=== PATIENT | female | born 1935 | race Caucasian/White ===

== ENCOUNTER 2022-12-20 19:42 | Outpatient (CLI) | payer MEDICARE, OTHER | END 2022-12-20 19:43 | disposition critical access hospital (66) | LOC: EMS 19:42 | DX: T51.0X2A Toxic effect of ethanol, intentional self-harm, initial encounter (principal) | CPT/HCPCS: A0425; A0429 ==

== ENCOUNTER 2022-12-20 20:19 | Emergency (ER) | payer MEDICARE, OTHER ==
[2022-12-20 20:48] LABS: BASOPHILS % (AUTO) 0.7 %; EOSINOPHILS # (AUTO) 0.1 10^3/uL (0.0-0.7); EOSINOPHILS % (AUTO) 1.7 %; HCT - HEMATOCRIT 40.4 % (37.0-47.0); HGB - HEMOGLOBIN 13.9 g/dL (12.0-16.0); LYMPHOCYTES # (AUTO) 1.8 10^3/uL (1.5-3.5); LYMPHOCYTES % (AUTO) 30.9 %; MEAN CORPUSCULAR HEMOGLOBIN 31.9 pg (27.0-31.0); MEAN CORPUSCULAR HGB CONC 34.4 g/dL (32.0-36.0); MEAN CORPUSCULAR VOLUME 92.7 fL (81.0-99.0); MONOCYTES # (AUTO) 0.6 10^3/uL (0.0-1.0); MONOCYTES % (AUTO) 10.1 %; NEUTROPHILS # (AUTO) 3.3 10^3/uL (1.5-6.6); NEUTROPHILS % (AUTO) 56.4 %; PLT - PLATELET COUNT 237 10^3/uL (130-450); RED BLOOD COUNT 4.36 10^6/uL (4.20-5.40); RED CELL DISTRIBUTION WIDTH 12.6 % (12.0-15.0); WHITE BLOOD COUNT 5.9 x10^3/uL (4.8-10.8)
[2022-12-20 21:03] LABS: MUDS CUTOFF CONCENTRATIONS CUTOFF CONC BELOW:
[2022-12-20 21:04] LABS: ALBUMIN 4.2 g/dL (3.2-5.5); ALBUMIN/GLOBULIN RATIO 1.8 (1.0-2.2); ALKALINE PHOSPHATASE 109 IU/L (42-121); ALT ALANINE AMINOTRANSFERASE 18 IU/L (10-60); AST ASPARTATE AMINOTRANSFERASE 20 IU/L (10-42); BILIRUBIN,TOTAL 0.5 mg/dL (0.2-1.0); BUN - BLOOD UREA NITROGEN 15 mg/dL (6-20); CALCIUM 9.4 mg/dL (8.5-10.3); CARBON DIOXIDE - CO2 26 mmol/L (21-32); CHLORIDE 98 mmol/L (101-111); CREATININE 0.7 mg/dL (0.4-1.0); GFR - MDRD 80 (>89); GLUCOSE 206 mg/dL (70-100); LIPASE 32 U/L (22-51); POTASSIUM 3.8 mmol/L (3.5-5.0); SODIUM 134 mmol/L (135-145); TOTAL PROTEIN 6.6 g/dL (6.7-8.2)
[2022-12-20 21:07] LABS: BILIRUBIN,URINE NEGATIVE (NEGATIVE); GLUCOSE, URINE (UA) 250 mg/dL (NEGATIVE); KETONES,URINE (UA) NEGATIVE (NEGATIVE); LEUKOCYTE ESTERASE, URINE SMALL (NEGATIVE); NITRITE,URINE NEGATIVE (NEGATIVE); OCCULT BLOOD,URINE NEGATIVE (NEGATIVE); PROTEIN,URINE NEGATIVE (NEGATIVE); UROBILINOGEN,URINE 0.2 (NORMAL) E.U./dL (NORMAL)
[2022-12-20 21:12] LABS: CLARITY,URINE HAZY (CLEAR)
[2022-12-20 21:18] LABS: AMPHETAMINE SCREEN,URINE NEGATIVE (NEGATIVE); BARBITURATE SCREEN,UR NEGATIVE (NEGATIVE); BENZODIAZEPINES SCREEN, URINE NEGATIVE (NEGATIVE); COCAINE SCREEN URINE NEGATIVE (NEGATIVE); METHADONE SCREEN, URINE NEGATIVE (NEGATIVE); METHAMPHETAMINES SCREEN, URINE NEGATIVE (NEGATIVE); OPIATE SCREEN, URINE NEGATIVE (NEGATIVE); OXYCODONE SCREEN, URINE NEGATIVE (NEGATIVE); PROPOXYPHENE SCREEN, URINE NEGATIVE (NEGATIVE); THC CANNABINOID SCREEN, URINE NEGATIVE (NEGATIVE); TRICYCLIC ANTIDEPRESSANT,URINE NEGATIVE (NEGATIVE)
[2022-12-20 21:21] LABS: BACTERIA,URINE Few /HPF (None Seen); RBC,URINE 0-5 /HPF (0-5); SQUAMOUS EPITHELIAL CELL,UR FEW Squamous (<= Few)
[2022-12-20 21:45] LABS: THYROID STIMULATING HORMONE 1.93 uIU/mL (0.34-5.60)
[2022-12-20 22:51] LABS: ACETAMINOPHEN 2.2 ug/mL
[2022-12-20 23:27] LABS: SALICYLATE < 1.5 mg/dL
--- NOTE | 2022-12-20 23:54 | ED Physician Documentation ---
PD HPI MHE - Stated complaint Stated Complaint: MHE - Chief complaint Chief Complaint: MHE - History obtained from History obtained from: Patient, Family (daughter and son in law) - History of Present Illness Primary symptom: Suicidal ideation, Other (alcohol intoxication) - Additional information Additional information: 87-year-old woman with history of untreated depression presents with suicidal ideation and alcohol intoxication tonight. Patient states that she drink a third of a bottle of gin mean "to kill herself" because she had a really stressful day working on her washing machine for a few hours. Patient also states she has been depressed since her 2 years ago. Daughter Danielle Morales ([phone]) states the patient has had intermittent depression for years but is not willing to seek treatment and also not willing to see her primary care provider. Patient currently denying SI/HI/AVH, stating she wants to go home. PD PAST MEDICAL HISTORY - Past Medical History Past Medical History: No Other Past Medical History: Unable to report/obtain - Present Medications Home Medications: Ambulatory Orders Medication Instructions Recorded Confirmed Home Medications Unobtainable 12/20/22 12/20/22 [HOME MEDICATIONS UNOBTAINABLE] - Allergies Allergies/Adverse Reactions: Allergies Allergy/AdvReac Type Severity Reaction Status Date / Time No Known Drug Allergies Allergy Verified 12/20/22 20:31 - Social History Does the pt smoke?: No Smoking Status: Never smoker Does the pt drink ETOH?: Yes ETOH Use: Liquor Does the pt have substance abuse?: No - Immunizations Immunizations are current?: Yes - POLST Patient has POLST: No PD ED PE NORMAL - Vitals Vital signs reviewed: Yes - General General: Alert and oriented X 3, No acute distress, Well developed/nourished - HEENT HEENT: Atraumatic, PERRL, EOMI - Neck Neck: Supple, no meningeal sign - Cardiac Cardiac: RRR - Respiratory Respiratory: No respiratory distress, Clear bilaterally - Abdomen Abdomen: Non tender, Non distended - Derm Derm: Normal color, Warm and dry - Neuro Neuro: Alert and oriented X 3 - Psych Psych: Normal affect, Other (Depressed mood) Results - Vitals Vitals: Vital Signs - 24 hr 12/20/22 12/20/22 20:25 22:35 Temperature 36.3 C L 36.4 C L Heart Rate 77 84 Respiratory 16 18 Rate Blood Pressure 150/74 H 116/96 H O2 Saturation 98 97 Oxygen O2 Source Room air - Labs Labs: Laboratory Tests 12/20/22 12/20/22 12/20/22 20:44 20:44 20:45 WBC 5.9 RBC 4.36 Hgb 13.9 Hct 40.4 MCV 92.7 MCH 31.9 H MCHC 34.4 RDW 12.6 Plt Count 237 MPV 9.0 Neut # (Auto) 3.3 Lymph # (Auto) 1.8 [place] # (Auto) 0.6 Eos # (Auto) 0.1 Baso # (Auto) 0.0 Absolute Nucleated RBC 0.00 Nucleated RBC % 0.0 Sodium 134 L Potassium 3.8 Chloride 98 L Carbon Dioxide 26 Anion Gap 10.0 BUN 15 Creatinine 0.7 Estimated GFR (MDRD) 80 L Glucose 206 H Calcium 9.4 Total Bilirubin 0.5 AST 20 ALT 18 Alkaline Phosphatase 109 Total Protein 6.6 L Albumin 4.2 Globulin 2.4 Albumin/Globulin Ratio 1.8 Lipase 32 TSH 1.93 Urine Color YELLOW Urine Clarity HAZY Urine pH 6.0 Ur Specific Peyton <=1.005 Urine Protein NEGATIVE Urine Glucose (UA) 250 H Urine Ketones NEGATIVE Urine Occult Blood NEGATIVE Urine Nitrite NEGATIVE Urine Bilirubin NEGATIVE Urine Urobilinogen 0.2 (NORMAL) Ur Leukocyte Esterase SMALL H Urine RBC 0-5 Urine WBC 4-5 Ur Squamous Epith Cells FEW Squamous Urine Bacteria Few Ur Microscopic Review INDICATED Urine Culture Comments INDICATED Salicylates < 1.5 Urine Opiates Screen NEGATIVE Ur Oxycodone Screen NEGATIVE Urine Methadone Screen NEGATIVE Ur Propoxyphene Screen NEGATIVE Acetaminophen 2.2 Ur Barbiturates Screen NEGATIVE Ur Tricyclics Screen NEGATIVE Ur Phencyclidine Scrn NEGATIVE Ur Amphetamine Screen NEGATIVE U Methamphetamines Scrn NEGATIVE U Benzodiazepines Scrn NEGATIVE Urine Cocaine Screen NEGATIVE U Cannabinoids Screen NEGATIVE Ethyl Alcohol 131.0 SARS-CoV-2 (PCR) 12/20/22 20:56 WBC RBC Hgb Hct MCV MCH MCHC RDW Plt Count MPV Neut # (Auto) Lymph # (Auto) [place] # (Auto) Eos # (Auto) Baso # (Auto) Absolute Nucleated RBC Nucleated RBC % Sodium Potassium Chloride Carbon Dioxide Anion Gap BUN Creatinine Estimated GFR (MDRD) Glucose Calcium Total Bilirubin AST ALT Alkaline Phosphatase Total Protein Albumin Globulin Albumin/Globulin Ratio Lipase TSH Urine Color Urine Clarity Urine pH Ur Specific [place]ey[place] Urine Protein Urine Glucose (UA) Urine Ketones Urine Occult Blood Urine Nitrite Urine Bilirubin Urine Urobilinogen Ur Leukocyte Esterase Urine RBC Urine WBC Ur Squamous Epith Cells Urine Bacteria Ur Microscopic Review Urine Culture Comments Salicylates Urine Opiates Screen Ur Oxycodone Screen Urine Methadone Screen Ur Propoxyphene Screen Acetaminophen Ur Barbiturates Screen Ur Tricyclics Screen Ur Phencyclidine Scrn Ur Amphetamine Screen U Methamphetamines Scrn U Benzodiazepines Scrn Urine Cocaine Screen U Cannabinoids Screen Ethyl Alcohol SARS-CoV-2 (PCR) NOT DETECTED PD Medical Decision Making - ED course ED course: 87-year-old woman presents to the emergency department with suicidal ideation and alcohol intoxication tonight. Patient called her daughter and said she wanted to kill herself so her daughter called 911 and sent her to the emergency room. Patient herself now denying SI here in the ED and is ambulatory to the bathroom without difficulty. Clinically stable at this time. She is requesting to go home and the daughter states that she can bring her home and watch her overnight. Return precautions given. Provided referral to mental health counseling and recommendation to start SSRI as coordinated by primary care provider. Departure - Departure Disposition: 01 Home, Self Care Clinical Impression: Alcohol intoxication, Depression Condition: Stable Instructions: ED Depression, ED Alcohol Abuse Comments: You are seen in the emergency department for mental health evaluation after drinking alcohol. Please follow-up with your primary care provider and a mental health counselor. You will benefit from starting an SSRI such as Prozac or Lexapro. He also would benefit from mental health counseling. Please see referral below. Yasmin Bautista [facility] email: [email or web address] website: [email or web address] years experience clinical psychotherapist in [place]. Return to the emergency department if you have new or worsening symptoms or other concerns. Forms: PCP List
[2022-12-21 00:06] VITALS: BP 118/68; O2SAT 100
== END 2022-12-21 | disposition home or self-care (01) ==
LOC: ED 20:19
DX: F10.129 Alcohol abuse with intoxication, unspecified (principal); Y90.6 Blood alcohol level of 120-199 mg/100 ml; Z20.822 Contact with and (suspected) exposure to COVID-19
CPT/HCPCS: 36415; 80053; 80306; 80307; 81001; 83690; 84443; 85025; 87086; 87635; 99283; G0480; 80320; 80329; 81003

== ENCOUNTER 2023-04-05 11:46 | Outpatient (CLI) | payer MEDICARE, OTHER | END 2023-04-05 11:47 | disposition critical access hospital (66) | LOC: EMS 11:46 | DX: S00.83XA Contusion of other part of head, initial encounter (principal); S50.01XA Contusion of right elbow, initial encounter; W01.0XXA Fall on same level from slipping, tripping and stumbling without subsequent striking against object, initial encounter; Y92.009 Unspecified place in unspecified non-institutional (private) residence as the place of occurrence of the external cause; R45.851 Suicidal ideations; R29.6 Repeated falls | CPT/HCPCS: A0425; A0429 ==

== ENCOUNTER 2023-04-05 12:22 | Emergency (ER) | payer MEDICARE, OTHER ==
--- NOTE | 2023-04-05 12:36 | ED Physician Documentation ---
History of Present Illness - Stated complaint Stated Complaint: FALL/HEAD INJ - History obtained from History obtained from: Patient, EMS - Additonal information Additional information: 88-year-old woman with frequent falls, lives alone, but family is very involved. She has frequent falls and fell yesterday evening around 5:30 PM. She is not sure why she fell but denies loss of consciousness. She was unable to get off the floor all night and did lay on the floor until family found her this morning. She really has no complaints but paramedics tell me that she stopped taking her blood pressure medication several months ago and the patient admits that this is "because I want to ." She is not actively suicidal and declines to talk to the adoption social worker for this. Per EMS the family is arranging for her to go to assisted living between the falls and the depression. PD PAST MEDICAL HISTORY - Present Medications Home Medications: Ambulatory Orders Medication Instructions Recorded Confirmed Nitrofurantoin [Macrobid] 100 mg PO BID #10 tab 12/21/22 - Allergies Allergies/Adverse Reactions: Allergies Allergy/AdvReac Type Severity Reaction Status Date / Time No Known Drug Allergies Allergy Verified 12/20/22 20:31 - Social History Does the pt smoke?: No Smoking Status: Never smoker Does the pt drink ETOH?: Yes Does the pt have substance abuse?: No - Immunizations Immunizations are current?: Yes - POLST Patient has POLST: No PD ED PE NORMAL - Vitals Vital signs reviewed: Yes - General General: Alert and oriented X 3, No acute distress - HEENT HEENT: Other (Scrapes over the right forehead and evidence of dried epistaxis. 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 Eye Opening: Spontaneous Motor: Obeys Commands Verbal: Oriented GCS Score: 15 Results - Vitals Vitals: Vital Signs - 24 hr 04/05/23 04/05/23 12:37 17:23 Temperature 36.5 C Heart Rate 89 91 Respiratory 18 18 Rate Blood Pressure 207/96 H 186/94 H O2 Saturation 99 97 Oxygen O2 Source Room air - Labs Labs: Laboratory Tests 04/05/23 04/05/23 12:46 12:46 WBC 12.2 H RBC 4.73 Hgb 14.9 Hct 42.8 MCV 90.5 MCH 31.5 H MCHC 34.8 RDW 12.3 Plt Count 276 MPV 9.5 Neut # (Auto) 10.7 H Lymph # (Auto) 0.8 L [place] # (Auto) 0.6 Eos # (Auto) 0.0 Baso # (Auto) 0.0 Absolute Nucleated RBC 0.00 Nucleated RBC % 0.0 Sodium 133 L Potassium 3.2 L Chloride 98 L Carbon Dioxide 24 Anion Gap 11.0 BUN 20 Creatinine 0.6 Estimated GFR (MDRD) 95 Glucose 198 H Calcium 9.2 Magnesium 1.6 L Total Bilirubin 1.0 AST 32 ALT 23 Alkaline Phosphatase 76 Total Creatine Kinase 466 H Total Protein 6.5 Albumin 4.3 Globulin 2.2 Albumin/Globulin Ratio 2.0 Vitamin B12 276 Folate 7.9 TSH 0.68 - Rads (name of study) CT of the head and cervical spine are negative except for chronic microvascular changes. Relevant Findings:: Final report received, EMP independent interpretation of test PD Medical Decision Making - ED course Complexity details: reviewed results (CBC showing mild nonspecific leukocytosis otherwise negative. CMP notable for mild hyponatremia, similar to prior value, mild hypokalemia and hypomagnesemia repleted orally. Mild to moderate hyperglycemia. CK modestly elevated but not alarmingly at 466.) ED course: 88-year-old woman had a fall last night with a head injury with negative cranial imaging. Has very mild elevation of CK. Ambulatory here without further complaints and really did not want to be here. She has hopelessness and depression but is not actively suicidal. Family supportive and at bedside and working on placement which is appropriate. Departure - Departure Disposition: 01 Home, Self Care Clinical Impression: Head injury Qualifiers: Encounter type: initial encounter Qualified Code(s): S09.90XA - Unspecified injury of head, initial encounter Condition: Good Record reviewed to determine appropriate education?: Yes Instructions: ED Head Injury Closed Comments: I agree with your family's plans to seek placement at [facility] or similar facility. No evidence of severe head injury. Potassium and magnesium were slightly low and you did receive supplementation here. Call your doctor to arrange a follow-up appointment, make the next available appointment. In the interim, return anytime if worse or if new symptoms develop. Forms: PCP List Discharge Date/Time: 04/05/23 17:23
[2023-04-05 12:53] LABS: BASOPHILS % (AUTO) 0.2 %; EOSINOPHILS % (AUTO) 0.1 %; HCT - HEMATOCRIT 42.8 % (37.0-47.0); HGB - HEMOGLOBIN 14.9 g/dL (12.0-16.0); LYMPHOCYTES # (AUTO) 0.8 10^3/uL (1.5-3.5); LYMPHOCYTES % (AUTO) 6.3 %; MEAN CORPUSCULAR HEMOGLOBIN 31.5 pg (27.0-31.0); MEAN CORPUSCULAR HGB CONC 34.8 g/dL (32.0-36.0); MEAN CORPUSCULAR VOLUME 90.5 fL (81.0-99.0); MEAN PLATELET VOLUME 9.5 fL (7.9-10.8); MONOCYTES # (AUTO) 0.6 10^3/uL (0.0-1.0); MONOCYTES % (AUTO) 4.8 %; NEUTROPHILS # (AUTO) 10.7 10^3/uL (1.5-6.6); NEUTROPHILS % (AUTO) 88.1 %; PLT - PLATELET COUNT 276 10^3/uL (130-450); RED BLOOD COUNT 4.73 10^6/uL (4.20-5.40); RED CELL DISTRIBUTION WIDTH 12.3 % (12.0-15.0); WHITE BLOOD COUNT 12.2 x10^3/uL (4.8-10.8)
[2023-04-05 13:07] LABS: ALBUMIN 4.3 g/dL (3.2-5.5); CALCIUM 9.2 mg/dL (8.5-10.3); CREATININE 0.6 mg/dL (0.6-1.3); MAGNESIUM 1.6 mg/dL (1.7-2.3); POTASSIUM 3.2 mmol/L (3.5-4.5); TOTAL PROTEIN 6.5 g/dL (6.4-8.9)
[2023-04-05] MEDS ORDERED: POTASSIUM BICARB 25 MEQ TABLET PO STA (13:25)
[2023-04-05] MEDS ORDERED: MAGNESIUM OXIDE 400 MG TABLET PO STA (13:25)
[2023-04-05 13:49] LABS: THYROID STIMULATING HORMONE 0.68 uIU/mL (0.34-5.60)
--- NOTE | 2023-04-05 16:52 | CT Report ---
PROCEDURE: HEAD WO INDICATIONS: head inj TECHNIQUE: Noncontrast 4.5 mm thick angled axial sections acquired from the foramen magnum to the vertex. For r adiation dose reduction, the following was used: automated exposure control, adjustment of mA and/or kV according to patient size. COMPARISON: None. FINDINGS: Image quality: Excellent. CSF spaces: Basal cisterns are patent. No extra-axial fluid collections. Ventricles are normal in size and shape. Brain: No midline shift. No intracranial masses or hemorrhage. Resendiz-white matter interface is norm al. Mild parenchymal volume loss with expansion of the CSF containing spaces with periventricular hy podensities consistent with chronic microvascular ischemic disease. Skull and face: Calvarium and visualized facial bones are intact, without suspicious lesions. Sinuses: Visualized sinuses and mastoids are clear. IMPRESSION: No acute intracranial pathology. Sequela of chronic microvascular disease. Reviewed by: Rey Sena MD on 04/05/2023 3:50 PM [place] Approved by: Rey Sena MD on 04/05/2023 3:50 PM [facility] Station ID: [id number]
--- NOTE | 2023-04-05 16:54 | CT Report ---
PROCEDURE: CERVICAL SPINE WO INDICATIONS: head inj TECHNIQUE: Noncontrast 3 mm thick sections acquired from the skull base to the T4 level. Sagittal and coronal r eformats were then constructed. For radiation dose reduction, the following was used: automated exp osure control, adjustment of mA and/or kV according to patient size. COMPARISON: None. FINDINGS: Image quality: Excellent. Bones: No fractures or dislocations. Visualized superior ribs are intact. Soft tissues: Prevertebral soft tissues are normal in thickness. No paravertebral hematomas. No ap ical pneumothoraces. Spondylitic changes throughout the cervical spine consistent with patient age. IMPRESSION: No acute osseous finding. Reviewed by: Rey Sena MD on 04/05/2023 3:53 PM [place] Approved by: Rey Sena MD on 04/05/2023 3:53 PM [place] Station ID: [id number]
[2023-04-05 17:26] VITALS: BP 186/94; O2SAT 97
== END 2023-04-05 17:23 | disposition home or self-care (01) ==
LOC: EDUNIT# → ED 12:22
DX: S09.90XA Unspecified injury of head, initial encounter (principal); S00.81XA Abrasion of other part of head, initial encounter; W19.XXXA Unspecified fall, initial encounter; E87.1 Hypo-osmolality and hyponatremia; E87.6 Hypokalemia; E83.42 Hypomagnesemia; R73.9 Hyperglycemia, unspecified; R94.4 Abnormal results of kidney function studies; Z91.81 History of falling; Z91.148 Patient's other noncompliance with medication regimen for other reason
CPT/HCPCS: 36415; 80053; 82550; 82607; 82746; 83735; 84443; 85025; 99284

== ENCOUNTER 2023-08-04 16:57 | Outpatient (CLI) | payer MEDICARE, OTHER | END 2023-08-04 23:59 | disposition critical access hospital (66) | LOC: EMS 16:57 | DX: R53.83 Other fatigue (principal); R41.82 Altered mental status, unspecified; R03.1 Nonspecific low blood-pressure reading; R11.2 Nausea with vomiting, unspecified; Z91.81 History of falling | CPT/HCPCS: A0425; A0427 ==

== ENCOUNTER 2023-08-04 17:23 | Inpatient (IN) | payer MEDICARE, OTHER ==
--- NOTE | 2023-08-04 17:34 | ED Physician Documentation ---
PD HPI ALTERED MENTAL STATUS - Stated complaint Stated Complaint: FALL/ALOC - History obtained from History obtained from: EMS - Additional information Additional information: 88-year-old woman with history of "cognitive decline" and hypertension presents from [facility]. Sounds like usually she is at least her alert and oriented and today has been altered and potentially had a fall. It is unclear if she hit her head. Patient is a poor historian and only alert and oriented x 1 on evaluation here. She did vomit prior to arrival. No report of blood in the vomit. All of the history is from EMS due to her altered mental status. She was hypotensive prior to arrival with a systolic of 80s and the petroleum products sales representative does not remember her diastolics. PD PAST MEDICAL HISTORY - Past Medical History Cardiovascular: Hypertension - Present Medications Home Medications: Ambulatory Orders Medication Instructions Recorded Confirmed Lisinopril [Zestril] 40 mg PO DAILY 08/04/23 08/04/23 amLODIPine [Norvasc] 5 mg PO DAILY 08/04/23 08/04/23 - Allergies Allergies/Adverse Reactions: Allergies Allergy/AdvReac Type Severity Reaction Status Date / Time adhesive tape Allergy Unknown Verified 08/04/23 17:45 aspirin Allergy Unknown Verified 08/04/23 17:45 codeine Allergy Unknown Verified 08/04/23 17:45 flurandrenolide Allergy Unknown Verified 08/04/23 17:45 Penicillins Allergy Unknown Verified 08/04/23 17:45 - Social History Does the pt smoke?: No Smoking Status: Never smoker Does the pt drink ETOH?: Yes Does the pt have substance abuse?: No - Immunizations Immunizations are current?: Yes - POLST Patient has POLST: No PD ED PE NORMAL - Vitals Vital signs reviewed: Yes (Alert and oriented x 1) - General General: Other (Alert and oriented x 1) - HEENT HEENT: PERRL, EOMI - Neck Neck: Supple, no meningeal sign, No bony TTP - Cardiac Cardiac: RRR, No murmur - Respiratory Respiratory: No respiratory distress, Clear bilaterally - Abdomen Abdomen: Non tender - Neuro Neuro: No motor deficit, No sensory deficit Eye Opening: Spontaneous Motor: Obeys Commands Verbal: Confused GCS Score: 14 Results - Vitals Vitals: Vital Signs - 24 hr 04/08/24 04/08/24 04/08/24 17:38 17:44 19:10 Temperature 36.1 C L 36.5 C Heart Rate 88 88 100 Heart Rate [ Monitoring electrodes] Respiratory 22 16 24 Rate Blood Pressure 100/54 L 100/54 L 153/62 H Blood Pressure [Left Brachial artery] O2 Saturation 95 95 35 L If not protocol : Oxygen Flow, liters/minute 08/04/23 08/04/23 08/04/23 19:19 19:30 20:00 Temperature Heart Rate 100 104 H Heart Rate [ Monitoring electrodes] Respiratory 22 20 Rate Blood Pressure 112/55 L 103/33 L Blood Pressure [Left Brachial artery] O2 Saturation 86 L 96 95 If not protocol 15 15 : Oxygen Flow, liters/minute 08/04/23 08/04/23 08/04/23 20:25 20:30 20:48 Temperature 36.0 C L 36.1 C L Heart Rate 104 H Heart Rate [ 99 100 Monitoring electrodes] Respiratory 22 20 22 Rate Blood Pressure 114/53 L Blood Pressure 100/61 114/53 L [Left Brachial artery] O2 Saturation 95 92 96 If not protocol 15 6 : Oxygen Flow, liters/minute Oxygen O2 Source Nasal cannula Oxygen Flow Rate 15 - EKG (time done) 1743 EKG releavant findings:: EKG personally interpreted by author of this note. Relevant findings are: Rate: Rate (enter#) (92) Rhythm: NSR Intervals: Prolonged MI Ischemia: Non specific changes. No: ST elevation c/w ischemia - Labs Labs: Microbiology 08/04/23 18:10 Occult Blood - Final Stool Laboratory Tests 08/04/23 08/04/23 08/04/23 17:40 17:45 17:45 WBC 11.4 H RBC 2.15 L Hgb 6.9 L* Hct 20.5 L MCV 95.3 MCH 32.1 H MCHC 33.7 RDW 14.1 Plt Count 324 MPV 8.9 Neut # (Auto) 9.4 H Lymph # (Auto) 1.3 L [place] # (Auto) 0.5 Eos # (Auto) 0.0 Baso # (Auto) 0.0 Absolute Nucleated RBC 0.02 Nucleated RBC % 0.2 PT 13.2 H INR 1.2 Sodium 127 L Potassium 3.6 Chloride 93 L Carbon Dioxide 25 Anion Gap 9.0 BUN 34 H Creatinine 0.9 Estimated GFR (MDRD) 59 L Glucose 240 H Lactic Acid Calcium 8.4 L Total Bilirubin 0.4 AST 9 L ALT 10 Alkaline Phosphatase 55 Total Protein 4.7 L Albumin 3.3 Globulin 1.4 L Albumin/Globulin Ratio 2.4 H Nasal Adenovirus (PCR) Nasal B. parapertussis DNA (PCR) Nasal Coronavir 229E PCR Nasal Coronavir HKU1 PCR Nasal Coronavir NL63 PCR Nasal Coronavir OC43 PCR Nasal Enterovir/Rhinovir PCR Nasal Influenza B PCR Nasal Influenza A PCR Nasal Parainfluen 1 PCR Nasal Parainfluen 2 PCR Nasal Parainfluen 3 PCR Nasal Parainfluen 4 PCR Nasal RSV (PCR) Nasal B.pertussis DNA PCR Nasal C.pneumoniae (PCR) Mitch Human Metapneumo PCR Nasal M.pneumoniae (PCR) Nasal SARS-CoV-2 (PCR) Ethyl Alcohol < 10.0 Blood Type Blood Type Recheck Antibody Screen Crossmatch IS Only 08/04/23 08/04/23 08/04/23 17:45 18:23 18:23 WBC RBC Hgb Hct MCV MCH MCHC RDW Plt Count MPV Neut # (Auto) Lymph # (Auto) [place] # (Auto) Eos # (Auto) Baso # (Auto) Absolute Nucleated RBC Nucleated RBC % PT INR Sodium Potassium Chloride Carbon Dioxide Anion Gap BUN Creatinine Estimated GFR (MDRD) Glucose Lactic Acid 2.6 H Calcium Total Bilirubin AST ALT Alkaline Phosphatase Total Protein Albumin Globulin Albumin/Globulin Ratio Nasal Adenovirus (PCR) Nasal B. parapertussis DNA (PCR) Nasal Coronavir 229E PCR Nasal Coronavir HKU1 PCR Nasal Coronavir NL63 PCR Nasal Coronavir OC43 PCR Nasal Enterovir/Rhinovir PCR Nasal Influenza B PCR Nasal Influenza A PCR Nasal Parainfluen 1 PCR Nasal Parainfluen 2 PCR Nasal Parainfluen 3 PCR Nasal Parainfluen 4 PCR Nasal RSV (PCR) Nasal B.pertussis DNA PCR Nasal C.pneumoniae (PCR) Mitch Human Metapneumo PCR Nasal M.pneumoniae (PCR) Nasal SARS-CoV-2 (PCR) Ethyl Alcohol Blood Type O NEGATIVE Blood Type Recheck O NEGATIVE Antibody Screen NEGATIVE Crossmatch IS Only See Detail 08/04/23 20:04 WBC RBC Hgb Hct MCV MCH MCHC RDW Plt Count MPV Neut # (Auto) Lymph # (Auto) [place] # (Auto) Eos # (Auto) Baso # (Auto) Absolute Nucleated RBC Nucleated RBC % PT INR Sodium Potassium Chloride Carbon Dioxide Anion Gap BUN Creatinine Estimated GFR (MDRD) Glucose Lactic Acid Calcium Total Bilirubin AST ALT Alkaline Phosphatase Total Protein Albumin Globulin Albumin/Globulin Ratio Nasal Adenovirus (PCR) NOT DETECTED Nasal B. parapertussis DNA (PCR) NOT DETECTED Nasal Coronavir 229E PCR NOT DETECTED Nasal Coronavir HKU1 PCR NOT DETECTED Nasal Coronavir NL63 PCR NOT DETECTED Nasal Coronavir OC43 PCR NOT DETECTED Nasal Enterovir/Rhinovir PCR NOT DETECTED Nasal Influenza B PCR NOT DETECTED Nasal Influenza A PCR NOT DETECTED Nasal Parainfluen 1 PCR NOT DETECTED Nasal Parainfluen 2 PCR NOT DETECTED Nasal Parainfluen 3 PCR NOT DETECTED Nasal Parainfluen 4 PCR NOT DETECTED Nasal RSV (PCR) NOT DETECTED Nasal B.pertussis DNA PCR NOT DETECTED Nasal C.pneumoniae (PCR) NOT DETECTED Mitch Human Metapneumo PCR NOT DETECTED Nasal M.pneumoniae (PCR) NOT DETECTED Nasal SARS-CoV-2 (PCR) NOT DETECTED Ethyl Alcohol Blood Type Blood Type Recheck Antibody Screen Crossmatch IS Only - Rads (name of study) Single view chest x-ray showing mild left basilar atelectasis versus infiltrate Relevant Findings:: Final report received, EMP independent interpretation of test CT of the head and cervical spine showing heavy vascular calcification, no trauma, severe degenerative changes in the spine. Relevant Findings:: Final report received, EMP independent interpretation of test aNGIO abD-Probable peptic ulcer disease with potential adjacent fluid and edema, tight celiac artery, diverticulosis Relevant Findings:: Final report received, EMP independent interpretation of test PD Medical Decision Making - ED course ED course: This is an 88-year-old woman with "cognitive decline" who presents by ambulance appearing very ill and encephalopathic. She may have hit her head today and she was hypotensive prior to arrival with vomitus. The vomit looks quite dark, but the paramedics tell me she was eating chocolate just prior to arrival. She was guaiac negative from from below but I am still worried about a GI bleed given her hemoglobin of 6.9. Previous hemoglobins had been normal. Workup in the emergency department otherwise showed mild leukocytosis on CBC, normal INR, CMP notable for a sodium of 127, she has been hyponatremic in the past but not to this level, she has some prerenal azotemia with mild lactic acidosis. She went over for CTs of the head, neck, and angio abdomen given the potential for GI bleed. Unfortunately she did have some contrast exaggerated extravasation at that time but another line was placed. It was reported to me that she vomited again and CT and return back from CT she is even more encephalopathic and now profoundly hypoxemic down into the 30s. She was placed on supplemental oxygen and came up to about 80%. I called the daughter by phone at [phone] and discussed current situation and goals of care. She is adamant that the patient does not want intubation or resuscitation but would be okay with conservative medical care such as oxygen, fluids, and antibiotics if the need were to arise. Daughter arrived and was at the bedside and we spoke at 8:30 PM. We discussed the findings on the abdominal angio with potential PUD which could cause an upper GI bleed. She looks fairly constipated below on that study so that may explain why she is guaiac negative now if she just has not had time for the blood to transverse through the colon. Daughter okay with EGD if needed and case discussed by phone with Dr. Louise, her surgeon at 8:38 PM who will follow in consult. At this point she is probably a little too sick to do urgent EGD, patient still requiring nonrebreather but looking better than she did earlier and her sats are now near 100%. Telehealth consultation placed for admission at 8:44 PM. Given the finding of left basilar atelectasis, leukocytosis, and respiratory failure I did put her on Rocephin and Zithromax for presumed CAP. Discussed case by phone with Dr. Arteaga for admission at 9 PM. - Critical Care Time(min): 40 Time Includes: Direct patient care, Review records, Reassess patient, Document care, Coordinate care, Medical consult, Family consult for [facility] Data interpretation: Labs, Pulse ox Procedures included in critical care time: Peripheral IV Procedures excluded from critical care time: EKG Departure - Departure Disposition: 66 [facility] DC/Xfer Clinical Impression: Acute anemia, Pneumonia GI bleed Qualifiers: GI bleed type/associated pathology: unspecified gastrointestinal hemorrhage type Qualified Code(s): K92.2 - Gastrointestinal hemorrhage, unspecified Respiratory failure Qualifiers: Chronicity: acute Respiratory failure complication: hypoxia Qualified Code(s): J96.01 - Acute respiratory failure with hypoxia
[2023-08-04 17:50] LABS: BASOPHILS % (AUTO) 0.4 %; EOSINOPHILS % (AUTO) 0.4 %; HCT - HEMATOCRIT 20.5 % (37.0-47.0); LYMPHOCYTES # (AUTO) 1.3 10^3/uL (1.5-3.5); LYMPHOCYTES % (AUTO) 11.2 %; MEAN CORPUSCULAR HEMOGLOBIN 32.1 pg (27.0-31.0); MEAN CORPUSCULAR HGB CONC 33.7 g/dL (32.0-36.0); MEAN CORPUSCULAR VOLUME 95.3 fL (81.0-99.0); MEAN PLATELET VOLUME 8.9 fL (7.9-10.8); MONOCYTES # (AUTO) 0.5 10^3/uL (0.0-1.0); MONOCYTES % (AUTO) 4.6 %; NEUTROPHILS # (AUTO) 9.4 10^3/uL (1.5-6.6); NEUTROPHILS % (AUTO) 82.4 %; NRBC ABSOLUTE COUNT (AUTO) 0.02 x10^3/uL; NUCLEATED RED BLOOD CELLS AUTO 0.2 /100WBC; PLT - PLATELET COUNT 324 10^3/uL (130-450); RED BLOOD COUNT 2.15 10^6/uL (4.20-5.40); RED CELL DISTRIBUTION WIDTH 14.1 % (12.0-15.0); WHITE BLOOD COUNT 11.4 x10^3/uL (4.8-10.8)
[2023-08-04 18:03] LABS: HGB - HEMOGLOBIN 6.9 g/dL (12.0-16.0)
[2023-08-04 18:05] LABS: INR 1.2 (0.8-1.2); PT - PROTHROMBIN TIME 13.2 secs (9.9-12.6)
[2023-08-04 18:10] LABS: ALBUMIN 3.3 g/dL (3.2-5.5); ALBUMIN/GLOBULIN RATIO 2.4 (1.0-2.2); ALKALINE PHOSPHATASE 55 IU/L (42-121); ALT ALANINE AMINOTRANSFERASE 10 IU/L (10-60); AST ASPARTATE AMINOTRANSFERASE 9 IU/L (10-42); BILIRUBIN,TOTAL 0.4 mg/dL (0.2-1.0); BUN - BLOOD UREA NITROGEN 34 mg/dL (6-20); CALCIUM 8.4 mg/dL (8.5-10.3); CARBON DIOXIDE - CO2 25 mmol/L (21-32); CHLORIDE 93 mmol/L (101-111); CREATININE 0.9 mg/dL (0.6-1.3); ETOH - ETHANOL < 10.0 mg/dL; GFR - MDRD 59 (>89); GLUCOSE 240 mg/dL (74-104); POTASSIUM 3.6 mmol/L (3.5-4.5); SODIUM 127 mmol/L (135-145); TOTAL PROTEIN 4.7 g/dL (6.4-8.9)
[2023-08-04] MEDS: PANTOPRAZOLE 40 MG VIAL IVP STA (18:20)
[2023-08-04] MEDS ORDERED: iohexoL-300 100 ML VIAL ONE ×2 (18:23→18:47)
--- NOTE | 2023-08-04 18:43 | XRAY Report ---
PROCEDURE: Chest 1V INDICATIONS: ams TECHNIQUE: One view of the chest was acquired. COMPARISON: None FINDINGS: Surgical changes and devices: None. Lungs and pleura: Mild left basilar atelectasis and or infiltrate Mediastinum: Mediastinal contours appear normal. Heart size is normal. Bones and chest wall: No suspicious bony lesions. Overlying soft tissues appear unremarkable. IMPRESSION: Mild left basilar atelectasis and/or infiltrate Reviewed by: Santos Vinson MD on 08/04/2023 5:42 PM AKDT Approved by: Santos Vinson MD on 08/04/2023 5:42 PM AKDT Station ID: [id number]
--- NOTE | 2023-08-04 19:26 | CT Report ---
PROCEDURE: Head WO INDICATIONS: ams head inj TECHNIQUE: Noncontrast 4.5 mm thick angled axial sections acquired from the foramen magnum to the vertex. For r adiation dose reduction, the following was used: automated exposure control, adjustment of mA and/or kV according to patient size. COMPARISON: 04/05/2023 FINDINGS: Image quality: Excellent. CSF spaces: Basal cisterns are patent. No extra-axial fluid collections. Ventricles are normal in size and shape. Brain: No midline shift. No intracranial masses or hemorrhage. Resendiz-white matter interface is norm al. Patchy subcortical hypodensity in the left posterior parietal region, similar compared to prior exam. Minimal periventricular white matter hypodensity. Heavy vascular calcification. Skull and face: Calvarium and visualized facial bones are intact, without suspicious lesions. Sinuses: Visualized sinuses and mastoids are clear. IMPRESSION: No CT evidence of acute intracranial trauma. No significant soft tissue injury seen or underlying skull fracture. Heavy vascular calcification. Reviewed by: Kristi Patel MD on 08/04/2023 7:24 PM PDT Approved by: Kristi Patel MD on 08/04/2023 7:24 PM PDT Station ID: [id number]
[2023-08-04] MEDS: iohexoL-300 100 ML VIAL IVP ONE (19:33)
--- NOTE | 2023-08-04 19:38 | CT Report ---
PROCEDURE: Cervical Spine WO INDICATIONS: head inj TECHNIQUE: Noncontrast 3 mm thick sections acquired from the skull base to the T4 level. Sagittal and coronal r eformats were then constructed. For radiation dose reduction, the following was used: automated exp osure control, adjustment of mA and/or kV according to patient size. COMPARISON: 04/05/2023 FINDINGS: Image quality: Excellent. Bones: No fractures or dislocations. There are severe degenerative changes at the atlantodental inte rval and craniocervical junction anteriorly. Severe disc height loss from C3 through C7 and moderate endplate spurring. Trace retrolisthesis C4-5 and trace anterolisthesis C3-4 and C6-7. Visualized supe rior ribs are intact. Soft tissues: Prevertebral soft tissues are normal in thickness. No paravertebral hematomas. No ap ical pneumothoraces. IMPRESSION: No acute fracture or traumatic subluxation. Stable and moderate to severe degenerative changes throughout the spine, most extensive at the cranio cervical junction and C1 to interval anteriorly. Reviewed by: Kristi Patel MD on 08/04/2023 7:36 PM PDT Approved by: Kristi Patel MD on 08/04/2023 7:36 PM PDT Station ID: [id number]
[2023-08-04] MEDS: SODIUM CHLORIDE 0.9% 1,000 ML IV STA ×2 (19:48→21:40)
--- NOTE | 2023-08-04 20:00 | CT Report ---
PROCEDURE: Angio Abdomen/Pelvis INDICATIONS: gi bleed CONTRAST: Omnipaque 300 100ml TECHNIQUE: After the administration of intravenous contrast, 2.5 mm thick sections acquired from the diaphragm t o the symphysis. 10 mm maximum-intensity projection (MIP) reformats were then acquired. For radiati on dose reduction, the following was used: automated exposure control, adjustment of mA and/or kV ac cording to patient size. COMPARISON: None FINDINGS: Image quality: Decreased due to patient's arm position.. Aorta: Normal caliber aorta with mild to moderate calcific plaque. Tortuous course. No dissection. 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 Celiac branches are patent. Superior mesenteric artery origin is patent with mild atherosclerotic shavonne cification. The inferior mesenteric artery is extremely diminutive but patent. Right pelvic arteries: Patent. Left pelvic arteries: Patent. Extravascular soft tissues: There is mixed interstitial and alveolar opacity in the left lower lung. Bronchial wall thickening in the lower lobes bilaterally and diffuse mild interstitial thickening in the right lower lobe. No pleural effusion. Moderate cardiomegaly. Pulmonary artery enlargement. Norm al aortic contour. Tiny hiatal hernia. The stomach is filled with fluid. There may be inflammation in the right upper quadrant gallbladder f brad involving the distal antrum and proximal duodenum. This area is obscured by beam hardening artif act from cholecystectomy clips. There is no adjacent extraluminal gas although adjacent free fluid ca nnot be excluded. Small bowel loops are decompressed. There are several moderate sized diverticula sc attered throughout colon. The colon demonstrates moderately increased quantity of solid stool diffuse ly. No focal wall thickening or focal pericolonic inflammation. No abnormalities of the liver, spleen, kidneys, or pancreas can be seen. There is a low-density media l limb right adrenal nodule, incompletely evaluated. The IVC is decompressed indicating decreased volume state. The uterus is not well seen due to beam hardening artifact from bilateral hip arthroplasties. The uri nary bladder is mainly obscured. No visible adenopathy in the retroperitoneum, abdomen, or pelvis. Th ere are small fat-containing ventral hernias without surrounding inflammation. No free fluid or free air. Decreased mineralization throughout the osseous structures. Multilevel degenerative disc disease throughout the spine. IMPRESSION: There is partially obscured probable inflammatory changes involving the distal stomach and proximal d uodenum suggesting peptic ulcer disease. There may be adjacent fluid and edema. No extraluminal gas i s seen. 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 Scattered colonic diverticulosis with solid stool diffusely. This can cause lower GI bleeding without significant pericolonic inflammation. Reviewed by: Kristi Patel MD on 08/04/2023 7:59 PM PDT Approved by: Kristi Patel MD on 08/04/2023 7:59 PM PDT Station ID: [id number]
[2023-08-04] MEDS: cefTRIAXone 1 GM VIAL IVP STA (20:14)
[2023-08-04] MEDS ORDERED: SODIUM CHLORIDE FLUSH 0.9% 10 ML SYRINGE IVP PRN (21:00)
[2023-08-04] MEDS ORDERED: ONDANSETRON 4 MG/2 ML VIAL IVP PRN (21:00)
--- NOTE | 2023-08-04 21:34 | HISTORY & PHYSICAL EXAMINATION ---
Chief Complaint - Chief Complaint Chief Complaint: Altered mental status, fall History of Present Illness - Admitted From Admitted From:: Assisted Living - History Obtained From Records Reviewed: Yes History obtained from: ER team, daughter Danielle Exam Limitations: None - History of Present Illness HPI Comment/Other: "This is an 88-year-old woman with "cognitive decline" who presents by ambulance appearing very ill and encephalopathic. She may have hit her head today and she was hypotensive prior to arrival with vomitus. The vomit looks quite dark, but the paramedics tell me she was eating chocolate just prior to arrival. She was guaiac negative from from below but I am still worried about a GI bleed given her hemoglobin of 6.9. Previous hemoglobins had been normal. Workup in the emergency department otherwise showed mild leukocytosis on CBC, normal INR, CMP notable for a sodium of 127, she has been hyponatremic in the past but not to this level, she has some prerenal azotemia with mild lactic acidosis. She went over for CTs of the head, neck, and angio abdomen given the potential for GI bleed. Unfortunately she did have some contrast exaggerated extravasation at that time but another line was placed. It was reported to me that she vomited again and CT and return back from CT she is even more encephalopathic and now profoundly hypoxemic down into the 30s. She was placed on supplemental oxygen and came up to about 80%. I called the daughter by phone at [phone] and discussed current situation and goals of care. She is adamant that the patient does not want intubation or resuscitation but would be okay with conservative medical care such as oxygen, fluids, and antibiotics if the need were to arise. Daughter arrived and was at the bedside and we spoke at 8:30 PM. We discussed the findings on the abdominal angio with potential PUD which could cause an upper GI bleed. She looks fairly constipated below on that study so that may explain why she is guaiac negative now if she just has not had time for the blood to transverse through the colon. Daughter okay with EGD if needed and case discussed by phone with Dr. Louise, her surgeon at 8:38 PM who will follow in consult. At this point she is probably a little too sick to do urgent EGD, patient still requiring nonrebreather but looking better than she did earlier and her sats are now near 100%. Telehealth consultation placed for admission at 8:44 PM." - As per ER MD we discussed regarding patient, slight concern secondary to low Na, new finding of possible pna, low Hb which is almost 50% of her baseline, had a nice talk witth patients daughter over [employer] cart. 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 when seen by me was weaned off the NRM and was on room air, looking pale, wanting to void and moving all 4 ext getting her PRBC Daughter understand patient will be full code during the procedure, ER has called surgery for possible EGD. For now will continue PRBC, hold her BP meds, supporitve care and NPO except meds History - Past Medical History Cardiovascular: reports: Hypertension - POLST Patient has POLST: No Meds/Allgy - Home Medications Home Medications: Ambulatory Orders Medication Instructions Recorded Confirmed Lisinopril [Zestril] 40 mg PO DAILY 08/04/23 08/04/23 amLODIPine [Norvasc] 5 mg PO DAILY 08/04/23 08/04/23 - Allergies Allergies/Adverse Reactions: Allergies Allergy/AdvReac Type Severity Reaction Status Date / Time adhesive tape Allergy Unknown Verified 08/04/23 17:45 aspirin Allergy Unknown Verified 08/04/23 17:45 codeine Allergy Unknown Verified 08/04/23 17:45 flurandrenolide Allergy Unknown Verified 08/04/23 17:45 Penicillins Allergy Unknown Verified 08/04/23 17:45 Review of Systems - Constitutional Constitutional: reports: Other (Looks pale) - Neurological Neurological: reports: General weakness, Other (Mildly altered today) Prior Level of Functionality: Lives at Assisted living was walking by self Exam - Vital Signs Vital Signs: Vital Signs x48h Temp Pulse Pulse Resp BP BP Pulse Ox 08/04/23 21:15 100 22 110/46 L 93 08/04/23 20:48 36.1 C L 100 22 114/53 L 96 08/04/23 20:30 104 H 20 114/53 L 92 08/04/23 20:25 36.0 C L 99 22 100/61 95 08/04/23 20:00 104 H 20 103/33 L 95 08/04/23 19:30 100 22 112/55 L 96 08/04/23 19:19 86 L 08/04/23 19:10 100 24 153/62 H 35 L 08/04/23 17:44 36.5 C 88 16 100/54 L 95 08/04/23 17:38 36.1 C L 88 22 100/54 L 95 O2 Flow Rate 08/04/23 21:15 6 08/04/23 20:48 6 08/04/23 20:30 08/04/23 20:25 15 08/04/23 20:00 15 08/04/23 19:30 08/04/23 19:19 15 08/04/23 19:10 08/04/23 17:44 08/04/23 17:38 - Physical Exam General Appearance: positive: No acute distress, Alert Eyes Bilateral: positive: Normal inspection ENT: positive: ENT inspection nml Neck: positive: Nml inspection Respiratory: positive: Breath sounds nml Cardiovascular: positive: Regular rate & rhythm Abdomen: positive: Non-tender, No distention Back: positive: Nml inspection Skin: positive: Other (Pale) Neurologic/Psychiatric: positive: Other (Slow to respond but improving was altered improving moving all 4 ext) Sepsis Event Note (H) - Evaluation Current Stage of Sepsis: Resolved Possible source of Sepsis: positive: Pulmonary Conclusion/Plan - Problem List (1) SIRS (systemic inflammatory response syndrome) Conclusion/Plan: Source not sure Likely Pulmonary with new infiltrate Low NA Hypoxia which has improved Agree with rocephin and Zithromax Patient is improving (2) Hyponatremia Conclusion/Plan: Likely hyovolumeic hyponatremia could be secondary from PNA gentle hydration Monitor for now Repeat labs in am (3) Pneumonia Conclusion/Plan: On Rocephin and Z max Sputum cultures PNA NAAT if available I could not find it (4) GI bleed Conclusion/Plan: Hb down by 50% of her baseline Coffee ground vomitus but no real source found Eating choclate earlier today Surgery consult IV protonix Serial Hb/hct PRB and IVF Possible EGD emiliana will defer to surgeon DVT prophylaxis Qualifiers: GI bleed type/associated pathology: unspecified gastrointestinal hemorrhage type Qualified Code(s): K92.2 - Gastrointestinal hemorrhage, unspecified (5) Acute anemia Conclusion/Plan: Transfuse PRBC - Lab Results Fish Bones: 08/04/23 17:45 08/04/23 17:45 - Diagnostic Imaging Results Diagnostic Imaging Results: positive: Final report reviewed - EKG Results EKG Comparison: Unchanged from prior EKG
[2023-08-04 21:44] LABS: B. PARAPERTUSSIS- RESP PCR PAN NOT DETECTED; B. PERTUSSIS- RESP PCR PANEL NOT DETECTED; C. PNEUMONIAE- RESP PCR PANEL NOT DETECTED; CORONAVIRUS 229E-RESP PCR NOT DETECTED; CORONAVIRUS HKU1-RESP PCR NOT DETECTED; CORONAVIRUS NL63-RESP PCR NOT DETECTED; CORONAVIRUS OC43-RESP PCR NOT DETECTED; HUMAN METAPNEUMOVIRUS NOT DETECTED; INFLUENZA A- RESP PCR PANEL NOT DETECTED; INFLUENZA B - RESP PCR PANEL NOT DETECTED; M. PNEUMONIAE- RESP PCR PANEL NOT DETECTED; PARAINFLUENZA VIRUS 1 NOT DETECTED; PARAINFLUENZA VIRUS 2 NOT DETECTED; PARAINFLUENZA VIRUS 3 NOT DETECTED; PARAINFLUENZA VIRUS 4 NOT DETECTED; RHINOVIRUS/ENTEROVIRUS NOT DETECTED; RSV- RESP PCR PANEL NOT DETECTED; SARS-CoV-2 -RESP PCR PANEL NOT DETECTED
[2023-08-04] MEDS: AZITHROMYCIN INJ 500 MG in SODIUM CHLORIDE 0.9% 250 ML IV STA (22:00)
[2023-08-04] MEDS: SODIUM CHLORIDE 0.9% 1,000 ML IV SCH (22:48)
[2023-08-04 23:00] LABS: BILIRUBIN,URINE NEGATIVE (NEGATIVE); GLUCOSE, URINE (UA) 100 mg/dL (NEGATIVE); KETONES,URINE (UA) NEGATIVE (NEGATIVE); LEUKOCYTE ESTERASE, URINE NEGATIVE (NEGATIVE); NITRITE,URINE NEGATIVE (NEGATIVE); OCCULT BLOOD,URINE NEGATIVE (NEGATIVE); PH,URINE 5.5 PH (5.0-7.5); PROTEIN,URINE NEGATIVE (NEGATIVE); UROBILINOGEN,URINE 0.2 (NORMAL) E.U./dL (NORMAL)
[2023-08-04 23:03] LABS: CLARITY,URINE CLEAR (CLEAR)
[2023-08-04 23:40] LABS: AMPHETAMINE SCREEN,URINE NEGATIVE (NEGATIVE); BARBITURATE SCREEN,UR NEGATIVE (NEGATIVE); BENZODIAZEPINES SCREEN, URINE NEGATIVE (NEGATIVE); BUPRENORPHINE SCREEN, URINE NEGATIVE (NEGATIVE); COCAINE SCREEN URINE NEGATIVE (NEGATIVE); METHADONE SCREEN, URINE NEGATIVE (NEGATIVE); METHAMPHETAMINES SCREEN, URINE NEGATIVE (NEGATIVE); OPIATE SCREEN, URINE NEGATIVE (NEGATIVE); OXYCODONE SCREEN, URINE NEGATIVE (NEGATIVE); THC CANNABINOID SCREEN, URINE NEGATIVE (NEGATIVE); TRICYCLIC ANTIDEPRESSANT,URINE NEGATIVE (NEGATIVE)
[2023-08-05] MEDS: PANTOPRAZOLE 80 MG in SODIUM CHLORIDE 0.9% 100ML 100 ML IV SCH (00:06)
[2023-08-05] MEDS: SODIUM CHLORIDE FLUSH 0.9% 10 ML SYRINGE IVP SCH (00:10)
[2023-08-05 05:24] LABS: BASOPHILS % (AUTO) 0.5 %; EOSINOPHILS % (AUTO) 0.5 %; HCT - HEMATOCRIT 23.6 % (37.0-47.0); HGB - HEMOGLOBIN 7.9 g/dL (12.0-16.0); LYMPHOCYTES # (AUTO) 0.6 10^3/uL (1.5-3.5); LYMPHOCYTES % (AUTO) 6.4 %; MEAN CORPUSCULAR HEMOGLOBIN 31.7 pg (27.0-31.0); MEAN CORPUSCULAR HGB CONC 33.5 g/dL (32.0-36.0); MEAN CORPUSCULAR VOLUME 94.8 fL (81.0-99.0); MONOCYTES # (AUTO) 0.3 10^3/uL (0.0-1.0); MONOCYTES % (AUTO) 3.3 %; NEUTROPHILS # (AUTO) 7.9 10^3/uL (1.5-6.6); NEUTROPHILS % (AUTO) 89.1 %; PLT - PLATELET COUNT 268 10^3/uL (130-450); RED BLOOD COUNT 2.49 10^6/uL (4.20-5.40); RED CELL DISTRIBUTION WIDTH 13.9 % (12.0-15.0); WHITE BLOOD COUNT 8.9 x10^3/uL (4.8-10.8)
[2023-08-05 05:41] LABS: ALBUMIN 2.8 g/dL (3.2-5.5); ALBUMIN/GLOBULIN RATIO 1.6 (1.0-2.2); BILIRUBIN,TOTAL 0.6 mg/dL (0.2-1.0); CREATININE 0.7 mg/dL (0.6-1.3); MAGNESIUM 1.4 mg/dL (1.7-2.3); POTASSIUM 3.7 mmol/L (3.5-4.5); TOTAL PROTEIN 4.5 g/dL (6.4-8.9)
[2023-08-05 06:36] LABS: DIFFERENTIAL COMMENT MANUAL=AUTO DIFF; PLATELET ESTIMATE, MANUAL NORMAL (130-450,000) (NORMAL); PLATELET MORPHOLOGY NORMAL APPEARANCE (NORMAL); RBC MORPHOLOGY (MULTIPLE) NORMAL APPEARANCE (NORMAL); WBC MORPHOLOGY (MULTIPLE) NORMAL APPEARANCE (NORMAL)
[2023-08-05] MEDS: cefTRIAXone 1 GM in SODIUM CHLORIDE 0.9% MINIBAG 100 ML IV SCH (10:17)
[2023-08-05] MEDS: AZITHROMYCIN INJ 500 MG in SODIUM CHLORIDE 0.9% 250 ML IV SCH (11:00)
--- NOTE | 2023-08-05 12:37 | PHARMACY PROGRESS NOTE ---
- Best Possible Medication History Admit Date and Time: 08/04/23 2100 Processed by: Nursing Medications reviewed in ED?: Yes Medication History completed: Yes Patient Interview: Pt unable to participate Secondary Source(s): Insurance records As the person ultimately responsible for medication therapy, providers are able to order a medication from an existing home medication list in [facility] via the "Reconcile Routine" prior to Confirmation of that medication by sales support specialist. Such practice is discouraged except when the physician, in their clinical judgment, deems that a medical need exists for a medication without regard to previous use.
[2023-08-05] MEDS ORDERED: CALCIUM CHLORIDE ABBOJECT 1000MG/10 ML SYRINGE IVP ONE (13:08)
[2023-08-05] MEDS ORDERED: MAGNESIUM SULFATE 1 GM in SODIUM CHLORIDE 0.9% 50 ML IV ONE (14:00)
[2023-08-05] MEDS ORDERED: CALCIUM CHLORIDE 1,000 MG in SODIUM CHLORIDE 0.9% 50 ML IV ONE (14:00)
[2023-08-05] MEDS: MAGNESIUM SULFATE 2 GRAM 2 GM/50 ML BAG IV ONE (14:04)
[2023-08-05] MEDS: PRENATAL VITAMIN TABLET PO SCH (14:56)
[2023-08-05] MEDS: CALCIUM CHLORIDE 1,000 MG in SODIUM CHLORIDE 0.9% 50 ML IV ONE (14:57)
--- NOTE | 2023-08-05 17:38 | PROVIDER PROGRESS NOTE ---
Subjective - Prog Note Date Prog Note Date: 08/05/23 Prog Note Time: 17:36 - Subjective Pt reports feeling: No change Subjective: This patient has baseline cognitive deficits. She is alert and oriented x 2. Currently vague historian. Really cannot give me much background on her symptoms. At her assisted living facility she has fallen 3 or 4 times in the last few weeks. In November of last year she was evaluated for suicidal ideation. Here she keeps on stating that she wants to kill herself. But she has no plan. She wishes that she was not alive. Cannot really describe the severity of her cough, any recent appetite ch anges.Has no insight about epigastric pain. Really cannot contribute much with regards to appetite or eating habits.She received 1 unit of blood. Hemoglobin went from 6.9-7.9. Nursing reports that they have not really tried to get her out of bed because they are afraid of her falling. Current Medications - Current Medications Current Medications: Active Medications Sodium Chloride (Normal Saline 0.9%) 1,000 mls @ 75 mls/hr IV .[id number] [facility] Last Admin: 08/05/23 16:05 Dose: 75 mls/hr Azithromycin 500 mg/ Sodium (Chloride) 250 mls @ 250 mls/hr IV ONCE [facility]ARSHA Stop: 08/09/23 08:59 Last Infusion: 08/05/23 12:15 Dose: Infused Ceftriaxone Sodium 1 gm/ (Sodium Chloride) 100 mls @ 200 mls/hr IV DAILY [facility] Stop: 08/10/23 08:59 Ondansetron HCl (Ondansetron 4 Mg/2 Ml Vial) 4 mg IVP Q6HR PRN PRN Reason: Nausea / Vomiting Pantoprazole Sodium (Pantoprazole 40 Mg Vial) 40 mg IVP BID [facility] Multivit/Folic Acid/Iron ( Vitamin Tablet) 1 tab PO DAILYWM [facility] Last Admin: 08/05/23 14:56 Dose: Not Given Sodium Chloride (Sodium Chloride Flush 0.9% 10 Ml Syringe) 10 ml IVP PRN PRN PRN Reason: NEEDED PER PROVIDER ORDERS Sodium Chloride (Sodium Chloride Flush 0.9% 10 Ml Syringe) 10 ml IVP 0100,0900,1700 [facility] Last Admin: 08/05/23 10:15 Dose: 10 ml Lisinopril [Zestril] 40 mg PO DAILY 08/04/23 amLODIPine [Norvasc] 5 mg PO DAILY 08/04/23 Objective - Vital Signs/Intake & Output Reviewed Vital Signs: Yes Vital Signs: Vital Signs x48h Temp Pulse Resp BP Pulse Ox O2 Flow Rate 08/05/23 16:30 36.7 C 80 20 121/49 L 97 9 08/05/23 11:41 18 94 9 Intake & Output: Intake & Output 08/02/23 08/03/23 08/04/23 08/05/23 23:59 23:59 23:59 23:59 Intake Total 1380 1560 Output Total 750 2075 Balance 630 -515 - Objective General Appearance: positive: No acute distress, Alert (but vague lady, slow to respond to questions w psychomotor delay) Eyes Bilateral: positive: PERRL ENT: positive: Pharynx nml Neck: positive: No JVD, Lymphadenopathy (R), Lymphadenopathy (L) (Adenopathy is shotty) Respiratory: positive: No respiratory distress ( she has a congested cough intermittently), Wheezes (Faint, diffuse), Rhonchi (Gurgling and wet mainly in mid lungs and bases), Other (No use of accessory muscles) Cardiovascular: positive: Regular rate & rhythm, Systolic murmur Abdomen: positive: Non-tender, No organomegaly, Nml bowel sounds, No distention Skin: positive: Warm, Dry, Pallor Extremities: positive: Full ROM, No pedal edema Neurologic/Psychiatric: positive: CN's nml (2-12), Motor nml, Disoriented to place, Disoriented to time - Lab Results Fish Bones: 08/05/23 05:08 08/05/23 05:08 Other Labs: Lab Results x24hrs 08/05/23 08/05/23 08/04/23 Range/Units 05:08 05:08 21:33 WBC 8.9 (4.8-10.8) x10^3/uL RBC 2.49 L (4.20-5.40) 10^6/uL Hgb 7.9 L (12.0-16.0) g/dL Hct 23.6 L (37.0-47.0) % MCV 94.8 (81.0-99.0) fL MCH 31.7 H (27.0-31.0) pg MCHC 33.5 (32.0-36.0) g/dL RDW 13.9 (12.0-15.0) % Plt Count 268 (130-450) 10^3/uL MPV 9.0 (7.9-10.8) fL Neut # (Auto) 7.9 H (1.5-6.6) 10^3/uL Lymph # (Auto) 0.6 L (1.5-3.5) 10^3/uL Morton # (Auto) 0.3 (0.0-1.0) 10^3/uL Eos # (Auto) 0.0 (0.0-0.7) 10^3/uL Baso # (Auto) 0.0 (0.0-0.1) 10^3/uL Absolute Nucleated RBC 0.00 x10^3/uL Band Neuts % (Manual) Not Reportable Abnorm Lymph % (Manual) Not Reportable Nucleated RBC % 0.0 /100WBC Neutrophils # (Manual) Not Reportable Lymphocytes # (Manual) Not Reportable Monocytes # (Manual) Not Reportable Eosinophils # (Manual) Not Reportable Basophils # (Manual) Not Reportable Differential Comment MANUAL=AUTO DIFF WBC Morphology NORMAL APPEARANCE (NORMAL) Platelet Estimate NORMAL (130-450,000) (NORMAL) Platelet Morphology NORMAL APPEARANCE (NORMAL) RBC Morph Micro Appear NORMAL APPEARANCE (NORMAL) PT (9.9-12.6) secs INR (0.8-1.2) Sodium 131 L (135-145) mmol/L Potassium 3.7 (3.5-4.5) mmol/L Chloride 102 (101-111) mmol/L Carbon Dioxide 23 (21-32) mmol/L Anion Gap 6.0 (6-13) BUN 32 H (6-20) mg/dL Creatinine 0.7 (0.6-1.3) mg/dL Estimated GFR (MDRD) 79 L (>89) Glucose 232 H (74-104) mg/dL Lactic Acid (0.5-2.2) mmol/L Calcium 8.0 L (8.5-10.3) mg/dL Magnesium 1.4 L (1.7-2.3) mg/dL Total Bilirubin 0.6 (0.2-1.0) mg/dL AST 10 (10-42) IU/L ALT 9 L (10-60) IU/L Alkaline Phosphatase 49 (42-121) IU/L Total Protein 4.5 L (6.4-8.9) g/dL Albumin 2.8 L (3.2-5.5) g/dL Globulin 1.7 L (2.1-4.2) g/dL Albumin/Globulin Ratio 1.6 (1.0-2.2) Urine Color YELLOW Urine Clarity CLEAR (CLEAR) Urine pH 5.5 (5.0-7.5) PH Ur Specific [place] <=1.005 (1.002-1.030) Urine Protein NEGATIVE (NEGATIVE) mg/dL Urine Glucose (UA) 100 H (NEGATIVE) mg/dL Urine Ketones NEGATIVE (NEGATIVE) mg/dL Urine Occult Blood NEGATIVE (NEGATIVE) Urine Nitrite NEGATIVE (NEGATIVE) Urine Bilirubin NEGATIVE (NEGATIVE) Urine Urobilinogen 0.2 (NORMAL) (NORMAL) E.U./dL Ur Leukocyte Esterase NEGATIVE (NEGATIVE) Ur Microscopic Review NOT INDICATED Urine Culture Comments NOT INDICATED Nasal Adenovirus (PCR) Nasal B. parapertussis DNA (PCR) Nasal Coronavir 229E PCR Nasal Coronavir HKU1 PCR Nasal Coronavir NL63 PCR Nasal Coronavir OC43 PCR Nasal Enterovir/Rhinovir PCR Nasal Influenza B PCR Nasal Influenza A PCR Nasal Parainfluen 1 PCR Nasal Parainfluen 2 PCR Nasal Parainfluen 3 PCR Nasal Parainfluen 4 PCR Nasal RSV (PCR) Nasal B.pertussis DNA PCR Nasal C.pneumoniae (PCR) Mitch Human Metapneumo PCR Nasal M.pneumoniae (PCR) Nasal SARS-CoV-2 (PCR) Urine Opiates Screen (NEGATIVE) Ur Buprenorphine Scrn (NEGATIVE) Ur Oxycodone Screen (NEGATIVE) Urine Methadone Screen (NEGATIVE) Ur Barbiturates Screen (NEGATIVE) Ur Tricyclics Screen (NEGATIVE) Ur Phencyclidine Scrn (NEGATIVE) Ur Amphetamine Screen (NEGATIVE) U Methamphetamines Scrn (NEGATIVE) U Benzodiazepines Scrn (NEGATIVE) Urine Cocaine Screen (NEGATIVE) U Cannabinoids Screen (NEGATIVE) Ur Drug Screen Comment Ethyl Alcohol mg/dL Blood Type Blood Type Recheck Antibody Screen Crossmatch IS Only 08/04/23 08/04/23 08/04/23 Range/Units 21:33 20:04 18:23 WBC (4.8-10.8) x10^3/uL RBC (4.20-5.40) 10^6/uL Hgb (12.0-16.0) g/dL Hct (37.0-47.0) % MCV (81.0-99.0) fL MCH (27.0-31.0) pg MCHC (32.0-36.0) g/dL RDW (12.0-15.0) % Plt Count (130-450) 10^3/uL MPV (7.9-10.8) fL Neut # (Auto) (1.5-6.6) 10^3/uL Lymph # (Auto) (1.5-3.5) 10^3/uL Morton # (Auto) (0.0-1.0) 10^3/uL Eos # (Auto) (0.0-0.7) 10^3/uL Baso # (Auto) (0.0-0.1) 10^3/uL Absolute Nucleated RBC x10^3/uL Band Neuts % (Manual) Abnorm Lymph % (Manual) Nucleated RBC % /100WBC Neutrophils # (Manual) Lymphocytes # (Manual) Monocytes # (Manual) Eosinophils # (Manual) Basophils # (Manual) Differential Comment WBC Morphology (NORMAL) Platelet Estimate (NORMAL) Platelet Morphology (NORMAL) RBC Morph Micro Appear (NORMAL) PT (9.9-12.6) secs INR (0.8-1.2) Sodium (135-145) mmol/L Potassium (3.5-4.5) mmol/L Chloride (101-111) mmol/L Carbon Dioxide (21-32) mmol/L Anion Gap (6-13) BUN (6-20) mg/dL Creatinine (0.6-1.3) mg/dL Estimated GFR (MDRD) (>89) Glucose (74-104) mg/dL Lactic Acid (0.5-2.2) mmol/L Calcium (8.5-10.3) mg/dL Magnesium (1.7-2.3) mg/dL Total Bilirubin (0.2-1.0) mg/dL AST (10-42) IU/L ALT (10-60) IU/L Alkaline Phosphatase (42-121) IU/L Total Protein (6.4-8.9) g/dL Albumin (3.2-5.5) g/dL Globulin (2.1-4.2) g/dL Albumin/Globulin Ratio (1.0-2.2) Urine Color Urine Clarity (CLEAR) Urine pH (5.0-7.5) PH Ur Specific [place] (1.002-1.030) Urine Protein (NEGATIVE) mg/dL Urine Glucose (UA) (NEGATIVE) mg/dL Urine Ketones (NEGATIVE) mg/dL Urine Occult Blood (NEGATIVE) Urine Nitrite (NEGATIVE) Urine Bilirubin (NEGATIVE) Urine Urobilinogen (NORMAL) E.U./dL Ur Leukocyte Esterase (NEGATIVE) Ur Microscopic Review Urine Culture Comments Nasal Adenovirus (PCR) NOT DETECTED Nasal B. parapertussis DNA (PCR) NOT DETECTED Nasal Coronavir 229E PCR NOT DETECTED Nasal Coronavir HKU1 PCR NOT DETECTED Nasal Coronavir NL63 PCR NOT DETECTED Nasal Coronavir OC43 PCR NOT DETECTED Nasal Enterovir/Rhinovir PCR NOT DETECTED Nasal Influenza B PCR NOT DETECTED Nasal Influenza A PCR NOT DETECTED Nasal Parainfluen 1 PCR NOT DETECTED Nasal Parainfluen 2 PCR NOT DETECTED Nasal Parainfluen 3 PCR NOT DETECTED Nasal Parainfluen 4 PCR NOT DETECTED Nasal RSV (PCR) NOT DETECTED Nasal B.pertussis DNA PCR NOT DETECTED Nasal C.pneumoniae (PCR) NOT DETECTED Mitch Human Metapneumo PCR NOT DETECTED Nasal M.pneumoniae (PCR) NOT DETECTED Nasal SARS-CoV-2 (PCR) NOT DETECTED Urine Opiates Screen NEGATIVE (NEGATIVE) Ur Buprenorphine Scrn NEGATIVE (NEGATIVE) Ur Oxycodone Screen NEGATIVE (NEGATIVE) Urine Methadone Screen NEGATIVE (NEGATIVE) Ur Barbiturates Screen NEGATIVE (NEGATIVE) Ur Tricyclics Screen NEGATIVE (NEGATIVE) Ur Phencyclidine Scrn NEGATIVE (NEGATIVE) Ur Amphetamine Screen NEGATIVE (NEGATIVE) U Methamphetamines Scrn NEGATIVE (NEGATIVE) U Benzodiazepines Scrn NEGATIVE (NEGATIVE) Urine Cocaine Screen NEGATIVE (NEGATIVE) U Cannabinoids Screen NEGATIVE (NEGATIVE) Ur Drug Screen Comment CUTOFF CONC BELOW: Ethyl Alcohol mg/dL Blood Type O NEGATIVE Blood Type Recheck Antibody Screen NEGATIVE Crossmatch IS Only See Detail 08/04/23 08/04/23 08/04/23 Range/Units 18:23 17:45 17:45 WBC (4.8-10.8) x10^3/uL RBC (4.20-5.40) 10^6/uL Hgb (12.0-16.0) g/dL Hct (37.0-47.0) % MCV (81.0-99.0) fL MCH (27.0-31.0) pg MCHC (32.0-36.0) g/dL RDW (12.0-15.0) % Plt Count (130-450) 10^3/uL MPV (7.9-10.8) fL Neut # (Auto) (1.5-6.6) 10^3/uL Lymph # (Auto) (1.5-3.5) 10^3/uL Morton # (Auto) (0.0-1.0) 10^3/uL Eos # (Auto) (0.0-0.7) 10^3/uL Baso # (Auto) (0.0-0.1) 10^3/uL Absolute Nucleated RBC x10^3/uL Band Neuts % (Manual) Abnorm Lymph % (Manual) Nucleated RBC % /100WBC Neutrophils # (Manual) Lymphocytes # (Manual) Monocytes # (Manual) Eosinophils # (Manual) Basophils # (Manual) Differential Comment WBC Morphology (NORMAL) Platelet Estimate (NORMAL) Platelet Morphology (NORMAL) RBC Morph Micro Appear (NORMAL) PT (9.9-12.6) secs INR (0.8-1.2) Sodium 127 L (135-145) mmol/L Potassium 3.6 (3.5-4.5) mmol/L Chloride 93 L (101-111) mmol/L Carbon Dioxide 25 (21-32) mmol/L Anion Gap 9.0 (6-13) BUN 34 H (6-20) mg/dL Creatinine 0.9 (0.6-1.3) mg/dL Estimated GFR (MDRD) 59 L (>89) Glucose 240 H (74-104) mg/dL Lactic Acid 2.6 H (0.5-2.2) mmol/L Calcium 8.4 L (8.5-10.3) mg/dL Magnesium (1.7-2.3) mg/dL Total Bilirubin 0.4 (0.2-1.0) mg/dL AST 9 L (10-42) IU/L ALT 10 (10-60) IU/L Alkaline Phosphatase 55 (42-121) IU/L Total Protein 4.7 L (6.4-8.9) g/dL Albumin 3.3 (3.2-5.5) g/dL Globulin 1.4 L (2.1-4.2) g/dL Albumin/Globulin Ratio 2.4 H (1.0-2.2) Urine Color Urine Clarity (CLEAR) Urine pH (5.0-7.5) PH Ur Specific [place] (1.002-1.030) Urine Protein (NEGATIVE) mg/dL Urine Glucose (UA) (NEGATIVE) mg/dL Urine Ketones (NEGATIVE) mg/dL Urine Occult Blood (NEGATIVE) Urine Nitrite (NEGATIVE) Urine Bilirubin (NEGATIVE) Urine Urobilinogen (NORMAL) E.U./dL Ur Leukocyte Esterase (NEGATIVE) Ur Microscopic Review Urine Culture Comments Nasal Adenovirus (PCR) Nasal B. parapertussis DNA (PCR) Nasal Coronavir 229E PCR Nasal Coronavir HKU1 PCR Nasal Coronavir NL63 PCR Nasal Coronavir OC43 PCR Nasal Enterovir/Rhinovir PCR Nasal Influenza B PCR Nasal Influenza A PCR Nasal Parainfluen 1 PCR Nasal Parainfluen 2 PCR Nasal Parainfluen 3 PCR Nasal Parainfluen 4 PCR Nasal RSV (PCR) Nasal B.pertussis DNA PCR Nasal C.pneumoniae (PCR) Mitch Human Metapneumo PCR Nasal M.pneumoniae (PCR) Nasal SARS-CoV-2 (PCR) Urine Opiates Screen (NEGATIVE) Ur Buprenorphine Scrn (NEGATIVE) Ur Oxycodone Screen (NEGATIVE) Urine Methadone Screen (NEGATIVE) Ur Barbiturates Screen (NEGATIVE) Ur Tricyclics Screen (NEGATIVE) Ur Phencyclidine Scrn (NEGATIVE) Ur Amphetamine Screen (NEGATIVE) U Methamphetamines Scrn (NEGATIVE) U Benzodiazepines Scrn (NEGATIVE) Urine Cocaine Screen (NEGATIVE) U Cannabinoids Screen (NEGATIVE) Ur Drug Screen Comment Ethyl Alcohol < 10.0 mg/dL Blood Type Blood Type Recheck O NEGATIVE Antibody Screen Crossmatch IS Only 08/04/23 08/04/23 Range/Units 17:45 17:40 WBC 11.4 H (4.8-10.8) x10^3/uL RBC 2.15 L (4.20-5.40) 10^6/uL Hgb 6.9 L* (12.0-16.0) g/dL Hct 20.5 L (37.0-47.0) % MCV 95.3 (81.0-99.0) fL MCH 32.1 H (27.0-31.0) pg MCHC 33.7 (32.0-36.0) g/dL RDW 14.1 (12.0-15.0) % Plt Count 324 (130-450) 10^3/uL MPV 8.9 (7.9-10.8) fL Neut # (Auto) 9.4 H (1.5-6.6) 10^3/uL Lymph # (Auto) 1.3 L (1.5-3.5) 10^3/uL Morton # (Auto) 0.5 (0.0-1.0) 10^3/uL Eos # (Auto) 0.0 (0.0-0.7) 10^3/uL Baso # (Auto) 0.0 (0.0-0.1) 10^3/uL Absolute Nucleated RBC 0.02 x10^3/uL Band Neuts % (Manual) Abnorm Lymph % (Manual) Nucleated RBC % 0.2 /100WBC Neutrophils # (Manual) Lymphocytes # (Manual) Monocytes # (Manual) Eosinophils # (Manual) Basophils # (Manual) Differential Comment WBC Morphology (NORMAL) Platelet Estimate (NORMAL) Platelet Morphology (NORMAL) RBC Morph Micro Appear (NORMAL) PT 13.2 H (9.9-12.6) secs INR 1.2 (0.8-1.2) Sodium (135-145) mmol/L Potassium (3.5-4.5) mmol/L Chloride (101-111) mmol/L Carbon Dioxide (21-32) mmol/L Anion Gap (6-13) BUN (6-20) mg/dL Creatinine (0.6-1.3) mg/dL Estimated GFR (MDRD) (>89) Glucose (74-104) mg/dL Lactic Acid (0.5-2.2) mmol/L Calcium (8.5-10.3) mg/dL Magnesium (1.7-2.3) mg/dL Total Bilirubin (0.2-1.0) mg/dL AST (10-42) IU/L ALT (10-60) IU/L Alkaline Phosphatase (42-121) IU/L Total Protein (6.4-8.9) g/dL Albumin (3.2-5.5) g/dL Globulin (2.1-4.2) g/dL Albumin/Globulin Ratio (1.0-2.2) Urine Color Urine Clarity (CLEAR) Urine pH (5.0-7.5) PH Ur Specific [place] (1.002-1.030) Urine Protein (NEGATIVE) mg/dL Urine Glucose (UA) (NEGATIVE) mg/dL Urine Ketones (NEGATIVE) mg/dL Urine Occult Blood (NEGATIVE) Urine Nitrite (NEGATIVE) Urine Bilirubin (NEGATIVE) Urine Urobilinogen (NORMAL) E.U./dL Ur Leukocyte Esterase (NEGATIVE) Ur Microscopic Review Urine Culture Comments Nasal Adenovirus (PCR) Nasal B. parapertussis DNA (PCR) Nasal Coronavir 229E PCR Nasal Coronavir HKU1 PCR Nasal Coronavir NL63 PCR Nasal Coronavir OC43 PCR Nasal Enterovir/Rhinovir PCR Nasal Influenza B PCR Nasal Influenza A PCR Nasal Parainfluen 1 PCR Nasal Parainfluen 2 PCR Nasal Parainfluen 3 PCR Nasal Parainfluen 4 PCR Nasal RSV (PCR) Nasal B.pertussis DNA PCR Nasal C.pneumoniae (PCR) Mitch Human Metapneumo PCR Nasal M.pneumoniae (PCR) Nasal SARS-CoV-2 (PCR) Urine Opiates Screen (NEGATIVE) Ur Buprenorphine Scrn (NEGATIVE) Ur Oxycodone Screen (NEGATIVE) Urine Methadone Screen (NEGATIVE) Ur Barbiturates Screen (NEGATIVE) Ur Tricyclics Screen (NEGATIVE) Ur Phencyclidine Scrn (NEGATIVE) Ur Amphetamine Screen (NEGATIVE) U Methamphetamines Scrn (NEGATIVE) U Benzodiazepines Scrn (NEGATIVE) Urine Cocaine Screen (NEGATIVE) U Cannabinoids Screen (NEGATIVE) Ur Drug Screen Comment Ethyl Alcohol mg/dL Blood Type Blood Type Recheck Antibody Screen Crossmatch IS Only ABX Reporting Has patient been on IV antibiotics over the past 48 hours?: Yes Sepsis Event Note (H) - Evaluation Current Stage of Sepsis: Resolved Possible source of Sepsis: positive: Pulmonary Assessment/Plan - Problem List (1) GI bleed Impression: Again, the picture is complicated by the fact that she was eating chocolate. So is the dark emesis she had chocolate or coffee-ground emesis. She does have a severe drop in her hemoglobin. This patient's hemoglobin is usually 14. CT sca n shows changes of duodenal ulcer. Case discussed with general surgery, and I do not think that she should proceed to EGD today on the basis of her lung exam. This unfortunate lady would need intubation to stabilize her lung status to then under go a safe EGD. Plan: Treat ulcer disease empirically with proton pump inhibitor Monitor serial hemoglobin I will discuss the case with her daughter. Qualifiers: GI bleed type/associated pathology: unspecified gastrointestinal hemorrhage type Qualified Code(s): K92.2 - Gastrointestinal hemorrhage, unspecified (2) Acute anemia Impression: Usual hemoglobin is over 14. She was 6.9 on admission. Transfuse 1 unit and she is 7.9. Will continue to monitor hemoglobin and hematocrit and transfuse when she drops below 7. Anemia is attributed to acute blood loss. However she does have history of iron deficiency anemia and B12 anemia according to our nutrition staff. As such she has been started on a vitamin. (3) Acute respiratory failure with hypoxia Impression: Her oxygen requirement is climbing throughout the day. She was on 15 L in the emergency room and managed to be brought down to 6 L this morning. And then by director of early childhood education was 4 L. However as the day is gone on she is gone on to 9 L oxy mask. She is a DO NOT RESUSCITATE. I will continue to treat empirically for the pneumonia, and supplement her anemia. (4) Pneumonia Impression: Lung exam has diffuse wheezing, and very loud rhonchi bilaterally. There was description of emesis with chocolate when EMS picked her up. So there could be a possibility of aspiration. Her white cell count has come down. Tmax was 37.2 this morning and she has not spiked a fever. Lung exam is quite positive for copious rhonchi that are gurgling. But she is not producing much phlegm. Blood cultures have been received and are pending. Plan: At this time to continue empiric azithromycin and ceftriaxone. They were given as one-time doses in the emergency room and I have resumed the ceftriaxone to give a total of 5 doses. The azithromycin will be for 3 doses. Adjust antibiotics on the basis of culture. If she spikes a temperature or has worsening white cell count, consider adding Flagyl. Qualifiers: Pneumonia type: due to unspecified organism Laterality: bilateral Lung location: unspecified part of lung Qualified Code(s): J18.9 - Pneumonia, unspecified organism (5) Suicidal ideation Impression: Social work describes this is a chronic intermittent problem for her. Last admission was also with similar statements. Plan: Will sit down and talk to the family. See if this patient is a candidate for palliative care. I also need to establish what her baseline is in between episodes of hospitalization. (6) Electrolyte abnormality Impression: This patient has hypomagnesemia and hypocalcemia. Corrected calcium was done on the basis of her albumin and she is 8.2. As such I have given her calcium gluconate and magnesium sulfate IV. She does not have arrhythmia or NC, and I will stop her telemetry. (7) Hyponatremia Impression: In looking at her last from 2022 her sodium was 134, 133. I suspect that she may have mild dehydration with poor p.o. intake. Other causes would be medications such as hydrochlorothiazide or SSRIs but she is not on them. She does not have a history of congestive heart failure or cirrhosis. Since her sodium is improving with IV fluids for hydration, I will continue to monitor. No other changes
[2023-08-06] MEDS: PANTOPRAZOLE 40 MG VIAL IVP SCH (01:01)
[2023-08-06] MEDS: IPRATROPIUM/ALBUTEROL 3 ML NEB INH PRN (02:35)
--- NOTE | 2023-08-06 02:35 | PROVIDER PROGRESS NOTE ---
Hand Crown Pouncer Note - Hand Crown Pouncer Note Hand Crown Pouncer Note: RN paged "Pt admitted for aspiration pneumonia, A&Ox1. Currently on 12L O2 via oxy mask and sat's are 92%. Pt has rhonchi and lots of gurgling in back of throat, pt not following instructions to deep breathe or cough. Suction attempted, nothing in mouth to suck out. May I please have order for scope patch and atropine drops? Thank you" spoke with RN. suggested NT suctioning for upper airway secretions. RN reports need specific order for deep suctioning and simple suction order does not suffice. reorder "aiway suction" order and added NT suction to text to encourage clearance of upper airway secretion. added saurabh at behest of RN to mabel airway. did add duoneb earlier to further assist with airway management. Bull [place]
[2023-08-06] MEDS: GLYCOPYRROLATE 1 MG/5 ML VIAL IVP PRN (02:55)
[2023-08-06 06:06] LABS: BASOPHILS % (AUTO) 0.1 %; LYMPHOCYTES % (AUTO) 8.5 %; MEAN CORPUSCULAR HEMOGLOBIN 32.1 pg (27.0-31.0); MEAN CORPUSCULAR HGB CONC 32.8 g/dL (32.0-36.0); MEAN PLATELET VOLUME 9.1 fL (7.9-10.8); MONOCYTES % (AUTO) 6.1 %; NEUTROPHILS % (AUTO) 85.1 %; PLT - PLATELET COUNT 207 10^3/uL (130-450); RED BLOOD COUNT 1.96 10^6/uL (4.20-5.40); RED CELL DISTRIBUTION WIDTH 15.4 % (12.0-15.0); WHITE BLOOD COUNT 8.5 x10^3/uL (4.8-10.8)
[2023-08-06 06:20] LABS: ALBUMIN 2.5 g/dL (3.2-5.5); ALBUMIN/GLOBULIN RATIO 1.6 (1.0-2.2); BILIRUBIN,TOTAL 0.4 mg/dL (0.2-1.0); CALCIUM 8.6 mg/dL (8.5-10.3); CREATININE 0.6 mg/dL (0.6-1.3); POTASSIUM 3.8 mmol/L (3.5-4.5); TOTAL PROTEIN 4.1 g/dL (6.4-8.9)
[2023-08-06 06:24] LABS: HCT - HEMATOCRIT 19.2 % (37.0-47.0); HGB - HEMOGLOBIN 6.3 g/dL (12.0-16.0)
[2023-08-06 06:26] LABS: ABNORMAL LYMPHS % (MANUAL) 0 %
[2023-08-06 06:44] LABS: BAND NEUTROPHILS % (MANUAL) 14 %; DIFFERENTIAL COMMENT MANUAL DIFFERENTIAL; LYMPHOCYTES # (MANUAL) 0.9 10^3/uL (1.5-3.5); LYMPHOCYTES % (MANUAL) 10 %; NEUTROPHILS # (MANUAL) 7.7 10^3/uL (1.5-6.6); PLATELET ESTIMATE, MANUAL NORMAL (130-450,000) (NORMAL); RBC MORPHOLOGY (MULTIPLE) 2+ HYPOCHROMASIA (NORMAL)
[2023-08-06] MEDS: FUROSEMIDE 20 MG/2 ML VIAL IVP STA (09:14)
[2023-08-06 09:48] LABS: ESTIMATED AVERAGE GLUCOSE 117 mg/dL (70-100); HEMOGLOBIN A1c% 5.7 % (4.27-6.07)
[2023-08-06] MEDS: cefTRIAXone 1 GM in SODIUM CHLORIDE 0.9% MINIBAG 100 ML IV SCH (12:22)
[2023-08-06] MEDS: AZITHROMYCIN INJ 500 MG in SODIUM CHLORIDE 0.9% 250 ML IV ONE (13:15)
[2023-08-06 15:58] VITALS: BP 138/62; O2SAT 89
[2023-08-06] MEDS ORDERED: ATROPINE 1% OPHTH DROPS 2 ML SL PRN (17:46)
[2023-08-06] MEDS ORDERED: GLYCOPYRROLATE 1 MG/5 ML VIAL SUBQ PRN (17:46)
[2023-08-06] MEDS ORDERED: LORazepam 1 MG TABLET PO PRN (17:46)
[2023-08-06] MEDS ORDERED: MORPHINE SOL 10 MG/0.5 ML ORAL SYRINGE SL PRN (17:46)
--- NOTE | 2023-08-06 19:25 | PROVIDER PROGRESS NOTE ---
Subjective - Prog Note Date Prog Note Date: 08/06/23 Prog Note Time: 19:23 - Subjective Subjective: this morning no longer responsive to voice. Objective - Vital Signs/Intake & Output Vital Signs: Vital Signs x48h Temp Pulse Resp BP Pulse Ox O2 Flow Rate 08/06/23 18:05 2 08/06/23 15:48 37.2 C 89 20 138/62 H 89 L 15 08/06/23 12:16 36.6 C 86 14 132/62 H 90 L 15 Intake & Output: Intake & Output 08/03/23 08/04/23 08/05/23 08/06/23 23:59 23:59 23:59 23:59 Intake Total 1380 3110 1832 Output Total 750 2500 2250 Balance 630 610 -418 - Objective General Appearance: positive: Other (unresponsive by this late morning. eyes closed, loud gurgling respirations) ENT: positive: No signs of dehydration Neck: positive: No JVD Respiratory: positive: Rales, Rhonchi, Other (mouth open breating w NRB at 15 liters w 89% 02 sat) Cardiovascular: positive: Regular rate & rhythm, Systolic murmur Abdomen: positive: Non-tender, No organomegaly, Nml bowel sounds, No distention Skin: positive: Warm, Dry, Pallor Extremities: positive: No pedal edema Neurologic/Psychiatric: positive: CN's nml (2-12), Disoriented to person, Disoriented to place, Disoriented to time, Other (responsive to sternal rub and opens eyes but nonverbal today). negative: Motor nml - Lab Results Fish Bones: 08/06/23 05:45 08/06/23 05:45 Other Labs: Lab Results x24hrs 08/06/23 08/06/23 08/06/23 Range/Units 05:45 05:45 05:45 WBC (4.8-10.8) x10^3/uL RBC (4.20-5.40) 10^6/uL Hgb (12.0-16.0) g/dL Hct (37.0-47.0) % MCV (81.0-99.0) fL MCH (27.0-31.0) pg MCHC (32.0-36.0) g/dL RDW (12.0-15.0) % Plt Count (130-450) 10^3/uL MPV (7.9-10.8) fL Neut # (Auto) Lymph # (Auto) Surry # (Auto) Eos # (Auto) Baso # (Auto) Absolute Nucleated RBC Total Counted Band Neuts % (Manual) (0 - 10) % Abnorm Lymph % (Manual) % Nucleated RBC % Neutrophils # (Manual) (1.5-6.6) 10^3/uL Lymphocytes # (Manual) (1.5-3.5) 10^3/uL Monocytes # (Manual) (0.0-1.0) 10^3/uL Eosinophils # (Manual) (0-0.7) 10^3/uL Basophils # (Manual) (0-0.1) 10^3/uL Differential Comment Platelet Estimate (NORMAL) RBC Morph Micro Appear (NORMAL) Sodium 139 (135-145) mmol/L Potassium 3.8 (3.5-4.5) mmol/L Chloride 109 (101-111) mmol/L Carbon Dioxide 26 (21-32) mmol/L Anion Gap 4.0 L (6-13) BUN 25 H (6-20) mg/dL Creatinine 0.6 (0.6-1.3) mg/dL Estimated GFR (MDRD) 95 (>89) Glucose 208 H (74-104) mg/dL Estimat Average Glucose 117 H (70-100) mg/dL Hemoglobin A1c % 5.7 (4.27-6.07) % Calcium 8.6 (8.5-10.3) mg/dL Total Bilirubin 0.4 (0.2-1.0) mg/dL AST 17 (10-42) IU/L ALT 10 (10-60) IU/L Alkaline Phosphatase 38 L (42-121) IU/L Total Protein 4.1 L (6.4-8.9) g/dL Albumin 2.5 L (3.2-5.5) g/dL Globulin 1.6 L (2.1-4.2) g/dL Albumin/Globulin Ratio 1.6 (1.0-2.2) Vitamin B12 200 (180-914) pg/mL Folate 6.4 (5.90 - >24.8) ng/mL Blood Type Antibody Screen Crossmatch IS Only 08/06/23 08/04/23 Range/Units 05:45 18:23 WBC 8.5 (4.8-10.8) x10^3/uL RBC 1.96 L (4.20-5.40) 10^6/uL Hgb 6.3 L* (12.0-16.0) g/dL Hct 19.2 L* (37.0-47.0) % MCV 98.0 (81.0-99.0) fL MCH 32.1 H (27.0-31.0) pg MCHC 32.8 (32.0-36.0) g/dL RDW 15.4 H (12.0-15.0) % Plt Count 207 (130-450) 10^3/uL MPV 9.1 (7.9-10.8) fL Neut # (Auto) Not Reportable Lymph # (Auto) Not Reportable Surry # (Auto) Not Reportable Eos # (Auto) Not Reportable Baso # (Auto) Not Reportable Absolute Nucleated RBC Not Reportable Total Counted 100 Band Neuts % (Manual) 14 H (0 - 10) % Abnorm Lymph % (Manual) 0 % Nucleated RBC % Not Reportable Neutrophils # (Manual) 7.7 H (1.5-6.6) 10^3/uL Lymphocytes # (Manual) 0.9 L (1.5-3.5) 10^3/uL Monocytes # (Manual) 0.0 (0.0-1.0) 10^3/uL Eosinophils # (Manual) 0.0 (0-0.7) 10^3/uL Basophils # (Manual) 0.0 (0-0.1) 10^3/uL Differential Comment MANUAL DIFFERENTIAL Platelet Estimate NORMAL (130-450,000) (NORMAL) RBC Morph Micro Appear 2+ HYPOCHROMASIA (NORMAL) Sodium (135-145) mmol/L Potassium (3.5-4.5) mmol/L Chloride (101-111) mmol/L Carbon Dioxide (21-32) mmol/L Anion Gap (6-13) BUN (6-20) mg/dL Creatinine (0.6-1.3) mg/dL Estimated GFR (MDRD) (>89) Glucose (74-104) mg/dL Estimat Average Glucose (70-100) mg/dL Hemoglobin A1c % (4.27-6.07) % Calcium (8.5-10.3) mg/dL Total Bilirubin (0.2-1.0) mg/dL AST (10-42) IU/L ALT (10-60) IU/L Alkaline Phosphatase (42-121) IU/L Total Protein (6.4-8.9) g/dL Albumin (3.2-5.5) g/dL Globulin (2.1-4.2) g/dL Albumin/Globulin Ratio (1.0-2.2) Vitamin B12 (180-914) pg/mL Folate (5.90 - >24.8) ng/mL Blood Type O NEGATIVE Antibody Screen NEGATIVE Crossmatch IS Only See Detail ABX Reporting Has patient been on IV antibiotics over the past 48 hours?: Yes Sepsis Event Note (H) - Evaluation Current Stage of Sepsis: Resolved Possible source of Sepsis: positive: Pulmonary Assessment/Plan - Problem List (1) GI bleed Impression: Again, the picture is complicated by the fact that she was eating chocolate. So is the dark emesis she had chocolate or coffee-ground emesis. She does have a severe drop in her hemoglobin. This patient's hemoglobin is usually 14. CT scan shows changes of duodenal ulcer. Case discussed with general surgery Yesterday and today, and I continue to think that she should not proceed to EGD on the basis of worsening lung exam. She is requiring even more oxygen today. I continue to think that she should not proce ed to EGD today on the basis of her lung exam. This unfortunate lady would need intubation to stabilize her lung status to then under go a safe EGD. Today's hemoglobin dropped to 6. No signs of active bleeding in stool. I did order transfusion. However, daughter sat down with me for a conversation. She describes mom's life gradually deteriorating and less and less independence. More more unhappiness. Statements to the effect that she wishes she was already . So daughter is asking that I please not proceed with blood transfusions. That we cancel any request for an EGD. And to transition mom to comfort measures. Plan: I have stopped lab orders, vital signs, the blood transfusions that I ordered this morning. I am now transitioning to Tylenol as needed, Ativan as needed, Roxanol drops as needed, scopolamine, Robinul as needed. I have discussed the case with respiratory therapy. Currently she is on 15 L nonrebreather to maintain an O2 sat of 89%. I have asked her to transition to just simple nasal cannula 2 L to provide some comfort. Qualifiers: GI bleed type/associated pathology: unspecified gastrointestinal hemorrhage type Qualified Code(s): K92.2 - Gastrointestinal hemorrhage, unspecified (2) Acute anemia Impression: Usual hemoglobin is over 14. She was 6.9 on admission. Transfused 1 unit and her hgb natalie to 7.9. This morning she is dropped to close to 6 g again. I did order 1 more unit of blood but daughter has asked me to cancel the transfusion and I have done so. (3) Acute respiratory failure with hypoxia Impression: Her oxygen requirement started climbing the night. Continue to increase and need today. She is a DO NOT RESUSCITATE. Her respiratory failure is attributed to pneumonia, anemia. Possibly some element of congestive heart failure. With the conversation this afternoon, I am stopping the Oxymizer or nonrebreather and transition to just simple nasal cannula at 2 L for comfort. She will also get Robinul, atropine as needed for secretions. (4) Pneumonia Impression: Lung exam Continues to have diffuse wheezing, and very loud rhonchi bilaterally. There was description of emesis with chocolate when EMS picked her up. So there could be a possibility of aspiration. Her white cell count was responding to the antibiotics and came down even further tonight. But her lung exam was worse. Blood cultures are negative. Plan: I am stopping empiric antibiotics and transition to comfort measures only Qualifiers: Pneumonia type: due to unspecified organism Laterality: bilateral Lung location: unspecified part of lung Qualified Code(s): J18.9 - Pneumonia, unspecified organism (5) Suicidal ideation Impression: Social work describes this is a chronic intermittent problem for her. Last admission was also with similar statements. Plan: Will sit down and talk to the family. See if this patient is a candidate for palliative care. I also need to establish what her baseline is in between episodes of hospitalization. (6) Electrolyte abnormality Impression: This patient has hypomagnesemia and hypocalcemia. Corrected calcium was done on the basis of her albumin and she is 8.2. On the ninth she received calcium gluconate and magnesium sulfate. No further monitoring of electrolytes at request of daughter (7) Hyponatremia Impression: In looking at her last from 2022 her sodium was 134, 133. I suspect that she may have mild dehydration with poor p.o. intake. Other causes would be medications such as hydrochlorothiazide or SSRIs but she is not on them. She does not have a history of congestive heart failure or cirrhosis. Since her sodium is improving with IV fluids for hydration, I will continue to monitor. No other changes Qualifiers: Qualified Code(s): K92.2 - Gastrointestinal hemorrhage, unspecified
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
--- NOTE | 2023-08-07 12:50 | ADVANCE CARE PLANNING NOTE ---
Advance Care Planning - Planning Encounter Date: 08/06/23 Time: 16:00 Purpose: asked by daughter to discuss transition to comfort Parties in Attendance: daughter, patient, and hospitalist Decisional Capacity of the Patient: In the last 24 hours the patient is now unresponsive to verbal stimuli. Deep sternal rub does cause her to open up her eyes - Diagnosis for Encounter (1) GI bleed Qualifiers: Qualified Code(s): K92.2 - Gastrointestinal hemorrhage, unspecified (3) Acute respiratory failure with hypoxia Summary: The patient presented as generalized weakness, altered mental status. Sudden change in baseline status. She was brought to the emergency room and found to have 2 major problems. 1 was most likely upper GI bleed and the second was pneumonia. She is requiring transfusion, and is continuing to deteriorate with pulmonary status. Needing more more oxygen and spite of antibiotics and nebulizers. - Encounter Subjective/Patient's Story: Unfortunately the patient has become less responsive over the course of this hospitalization. And the daughter, JERRY, has asked for this meeting. 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 She was like that all of her life growing up. But her was a very loving and caring person who handles "everything". He approximately 6 years ago and the extent of her mother's needs became readily apparent to the rest of the family. Mom is also impulsive, would make poor decisions but was not necessarily with dementia. 2 years after her 's she decided that she could not live in a house they lived in and she sold it for quite a bit of money. She then lived in [facility] and lived in both a assisted living facility followed by a independent condominium. That did not work out. Again impulsive decision making and the patient brought a small property in [place]. Quite a bit of elevation needed to be done. All this time very demanding of her daughters time. She decided to moved to the [place] to be closer to her daughter, her grandchildren and great-grandchildren. She expected them to come over regularly and to take care of anything she needed and mom expressed quite a bit of unhappiness that family was not able to take the time to do that on a regular basis. She missed her . Over the last 2 to 3 years she repeatedly stated that she wished that she could . That she was not happy. She then had an attempt where she drank gin and became intoxicated with altered mental status in November 2022. Again she wanted to "drink herself to ". She was seen in our emergency room and had a mental health evaluation. Subsequent to that she had to sell her property in [place] and she has been living in an assisted living facility since March 2023. She does not like living there. She does not like the people there. She is fretful. Increasingly unhappy. Keeps on stating that she wishes she could just . On top of that she has been experiencing more a more cognitive deficit. More forgetful. With this hospitalization and the patient's continued statements of wishing she could , the daughter acknowledges that mom's quality of life is deteriorated since her 's . She has become increasingly frail from a physical perspective. And has stated over and over again how unhappy she has. Over the last 2 days she has watched mom have increasing oxygen requirements and not respond to her pneumonia treatment she has seen that mom most likely cannot get an EGD at this time because of her respiratory status being unstable. She also sees that mom needs another blood transfusion today. Taking into account the poor quality of life as stated by the patient, and increasing medical needs, the daughter wishes to transition her to comfort measures only. Patient is already a DO NOT RESUSCITATE. Objective/Medical Story: Patient was admitted as altered mental status. In the emergency room found to have disorientation, hypoxia, anemia, and abnormal chest x-ray and a description of possible coffee-ground emesis. She is profoundly anemic. Usual hemoglobin is 14 and she was down to 6. She was transfused and had improvement to close to 8 g of hemoglobin. However today she is back down to close to 6 and will need another unit of blood. She has not responded to pneumonia treatment and she is now on a 15 L nonrebreather maintaining O2 sats at 89 to 90%. Between yesterday and today the patient has become unresponsive and assisted deep sternal rub. The patient is on a proton pump inhibitor, antibiotics, and IV fluids. Goals of Care: Daughter would like patient to transition to comfort measures and inevitable . If the patient last with us longer than the next 2 days decision would be to transfer her back to [facility] with hospice. Plan: At this time I am stopping IV maintenance fluids, labs, vital signs, and routine nursing care. I am asking that we focus on comfort measures with Tylenol as needed, Roxanol drops as needed, Ativan as needed, Robinul as needed, Zofran as needed. I have discussed the case with respiratory therapy and we will reduce her oxygen to nasal cannula for comfort sake. We are not going to be aiming for an O2 sat of 88% or greater Code Status: Do Not Attempt Resuscitation Time spent on advance care plannin minutes
== END 2023-08-06 21:27 | disposition expired | DRG 377 ==
LOC: EDUNIT# → ED 17:23 → MS2 21:00
PROVIDERS: ADMIT Internal Medicine; ATTEND Specialist
PROC: 30233N1 Transfusion of Nonautologous Red Blood Cells into Peripheral Vein, Percutaneous Approach (ICD-10-PCS; principal; 2023-08-05)
DX: K26.4 Chronic or unspecified duodenal ulcer with hemorrhage (principal); J18.9 Pneumonia, unspecified organism; K92.2 Gastrointestinal hemorrhage, unspecified; J96.01 Acute respiratory failure with hypoxia; D64.9 Anemia, unspecified; D72.829 Elevated white blood cell count, unspecified; R79.89 Other specified abnormal findings of blood chemistry; E87.20 Acidosis, unspecified; D62 Acute posthemorrhagic anemia; R45.851 Suicidal ideations; E87.1 Hypo-osmolality and hyponatremia; E87.6 Hypokalemia; E83.51 Hypocalcemia; E83.42 Hypomagnesemia; I10 Essential (primary) hypertension; Z66 Do not resuscitate; Z51.5 Encounter for palliative care; R11.2 Nausea with vomiting, unspecified; R41.89 Other symptoms and signs involving cognitive functions and awareness; R53.1 Weakness; E86.0 Dehydration; K57.30 Diverticulosis of large intestine without perforation or abscess without bleeding; J98.11 Atelectasis; I95.9 Hypotension, unspecified
CPT/HCPCS: 36415; 70450; 71045; 72125; 74174; 80053; 80306; 81003; 82272; 82607; 82746; 83036; 83605; 83735; 85025; 85610; 86850; 86900; 86901; 86920; 87040; 87633; 93005; 94640; 96361; 96374; 96375; 99285; 99291; G0480; J7040; P9016; Q9967; 81001; 82077; 87086